=== PATIENT | male | born 1945 | race Caucasian/White ===

== ENCOUNTER 2023-03-07 14:25 | Outpatient (OUT) | payer MEDICARE, SELFPAY ==
[2023-03-07 14:54] LABS: Uric Acid 5.9 mg/dL (3.5-7.2)
[2023-03-07 15:01] LABS: C Reactive Protein <0.2 mg/dL (<=1.0)
[2023-03-07 15:08] LABS: Erythrocyte Sedimentation Rate 29 mm/hr (<=20)
[2023-03-08 04:08] LABS: Antistreptolysin O Ab 35.7 IU/mL (0.0-200.0); Rheumatoid Factor (RF) <10.0 IU/mL (<14.0)
[2023-03-08 14:09] LABS: Anti-CCP Ab, IgG/IgA 7 units (0-19)
[2023-03-09 10:09] LABS: Antinuclear Antibodies, IFA Negative (.)
== END 2023-03-07 14:26 ==
LOC: LAB 14:26
PROVIDERS: PCP Internal Medicine; Visit Provider Internal Medicine
DX: M35.9 Systemic involvement of connective tissue, unspecified (principal)
CPT/HCPCS: 36415; 84550; 85652; 86038; 86060; 86140; 86200; 86430

== ENCOUNTER 2023-05-24 08:00 | Outpatient (OUT) | payer MEDICARE, SELFPAY ==
[2023-05-24 08:34] LABS: Basophils Absolute Auto 0.1 10^3/uL (0.0-0.1); Basophils Percent Auto 1.4 % (0.2-2.0); Eosinophils Percent Auto 0.1 % (0.9-7.0); Hematocrit 36.2 % (42.0-54.0); Hemoglobin 12.1 g/dL (14.0-18.0); Immature Granulocytes Abs Auto 0.06 10^3/uL (0.00-0.03); Immature Granulocytes Pct Auto 0.8 % (0.0-0.5); Lymphocytes Absolute Auto 1.7 10^3/uL (1.2-3.8); Lymphocytes Percent Auto 23.6 % (20.5-60.0); Mean Corpuscular HGB Conc 33.4 g/dL (29.9-35.2); Mean Corpuscular Volume 89.6 fL (80.0-94.0); Mean Platelet Volume 8.9 fL (9.5-13.5); Monocytes Absolute Auto 0.9 10^3/uL (0.3-0.8); Monocytes Percent Auto 12.1 % (1.7-12.0); Neutrophils Absolute Auto 4.6 10^3/uL (1.4-6.5); Platelet Count 329 10^3/uL (150-450); Red Blood Count 4.04 10^6/uL (4.70-6.10); Red Cell Distribution Width 14.6 % (11.0-15.0); White Blood Count 7.4 10^3/uL (4.0-11.0)
[2023-05-24 09:27] LABS: Estimated Average Glucose 137 mg/dL; Glycohemoglobin A1C 6.4 % (4.5-6.2)
[2023-05-24 09:32] LABS: Alanine Aminotransferase 22 U/L (16-63); Albumin Globulin Ratio 1.1; Albumin Level 3.6 g/dL (3.4-5.0); Alkaline Phosphatase 59 U/L (46-116); Anion Gap 8.3; Aspartate Amino Transferase 13 U/L (15-37); BUN Creatinine Ratio 12.2; Bilirubin Direct 0.1 mg/dL (0.0-0.2); Bilirubin Total 0.5 mg/dL (0.2-1.0); Calcium 8.4 mg/dL (8.5-10.1); Chloride 100 mmol/L (98-107); Chol HDL Ratio 2.5; Cholesterol 108 mg/dL (<=200); Estimated GFR (African America 50 (>=60); Estimated GFR (Non-African Ame 41 (>=60); Globulin 3.2 g/dL; Glucose 112 mg/dL (74-106); HDL Cholesterol 44 mg/dL (40-60); LDL Cholesterol Calculated 44.4 mg/dL; Potassium 3.3 mmol/L (3.5-5.1); Sodium 132 mmol/L (136-145); Total Protein 6.8 g/dL (6.4-8.2); Triglycerides 98 mg/dL (<=150); VLDL CHOLESTEROL 19.6 mg/dL
== END 2023-05-24 08:01 | disposition home or self-care (01) ==
LOC: LAB 08:00
PROVIDERS: PCP Internal Medicine; Visit Provider Family Medicine
DX: Z79.899 Other long term (current) drug therapy (principal); E11.65 Type 2 diabetes mellitus with hyperglycemia; E78.5 Hyperlipidemia, unspecified
CPT/HCPCS: 36415; 80048; 80061; 80076; 83036; 85025

== ENCOUNTER 2023-11-24 06:45 | Outpatient (OUT) | payer MEDICARE, SELFPAY ==
[2023-11-24 07:14] LABS: Basophils Absolute Auto 0.1 10^3/uL (0.0-0.1); Basophils Percent Auto 1.2 % (0.2-2.0); Eosinophils Percent Auto 0.1 % (0.9-7.0); Hematocrit 37.5 % (42.0-54.0); Hemoglobin 12.3 g/dL (14.0-18.0); Immature Granulocytes Abs Auto 0.05 10^3/uL (0.00-0.03); Immature Granulocytes Pct Auto 0.6 % (0.0-0.5); Lymphocytes Percent Auto 23.5 % (20.5-60.0); Mean Corpuscular HGB Conc 32.8 g/dL (29.9-35.2); Mean Corpuscular Hemoglobin 30.1 pg (25.9-34.0); Mean Corpuscular Volume 91.7 fL (80.0-94.0); Mean Platelet Volume 9.1 fL (9.5-13.5); Monocytes Absolute Auto 0.9 10^3/uL (0.3-0.8); Monocytes Percent Auto 11.2 % (1.7-12.0); Neutrophils Absolute Auto 5.3 10^3/uL (1.4-6.5); Neutrophils Percent Auto 63.4 % (43.0-75.0); Platelet Count 265 10^3/uL (150-450); Red Blood Count 4.09 10^6/uL (4.70-6.10); Red Cell Distribution Width 14.2 % (11.0-15.0); White Blood Count 8.3 10^3/uL (4.0-11.0)
[2023-11-24 09:13] LABS: Microalbumin Urine Random <1.3 mg/dL (<=30.0)
[2023-11-24 09:50] LABS: Estimated Average Glucose 134 mg/dL; Glycohemoglobin A1C 6.3 % (4.5-6.2)
[2023-11-24 09:51] LABS: BUN Creatinine Ratio 12.7; Calcium 8.2 mg/dL (8.5-10.1); Carbon Dioxide 28.4 mmol/L (21.0-32.0); Chloride 105 mmol/L (98-107); Estimated GFR (African America 49 (>=60); Estimated GFR (Non-African Ame 40 (>=60); Free T3 2.11 pg/mL (2.18-3.98); Glucose 107 mg/dL (74-106); Potassium 3.4 mmol/L (3.5-5.1); Sodium 146 mmol/L (136-145); Thyroid Stimulating Hormone 3.286 uIU/mL (0.358-3.740)
== END 2023-11-24 06:46 | disposition home or self-care (01) ==
PROVIDERS: PCP Family Medicine; Visit Provider Family Medicine
DX: E11.65 Type 2 diabetes mellitus with hyperglycemia (principal); Z79.899 Other long term (current) drug therapy; E03.9 Hypothyroidism, unspecified
CPT/HCPCS: 36415; 80048; 82043; 83036; 84439; 84443; 84481; 85025

== ENCOUNTER 2024-05-18 08:51 | Outpatient (OUT) | payer MEDICARE, SELFPAY ==
--- OUTSIDE RECORDS SUMMARY | 2024-05-17 18:56 | XMS_ITS | CCD ---
Author Organization [facility] Care Team Providers Care Cloud Developer Name Role Phone CHRISTIANO, DR IMELDA Fowler Attending Unavailable NADERER, DR IMELDA Fowler Consulting Unavailable NADERER, DR IMELDA Fowler Primary Care Unavailable NADERER, DR IMELDA Fowler Admitting Unavailable NADERER, DR IMELDA Fowler Consulting Unavailable NADERER, DR IMELDA Fowler Primary Care Unavailable NADERER, DR IMELDA Fowler Admitting Unavailable NADERER, DR IMELDA Fowler Attending Unavailable NADERER, DR IMELDA Fowler Consulting Unavailable NADERER, DR IMELDA Fowler Primary Care Unavailable NADERER, DR IMELDA Fowler Admitting Unavailable NADERER, DR IMELDA Fowler Attending Unavailable Problems Problem Classification Problem Date Documented Da te Episodic/Chronic Diabetes mellitus with complications (1 source) Type 2 diabetes mellitus with hyperglycemia; Translations: [TYPE 2 DM W/HYPERGLYCEMIA] Onset: 11-07-2022 Chronic Disorders of lipid metabolism (1 source) Hyperlipidemia, unspecified; Translations: [HYPERLIPIDEMIA UNSPECIFIED] Onset: 05-01-2022 Chronic Essential hypertension (4 sources) Essential (primary) hypertension; Translations: [ESSENTIAL PRIMARY HYPERTENSION] Onset: 11-05-2022 Chronic Nutritional deficiencies (5 sources) Vitamin D deficiency, unspecified; Translations: [VITAMIN D DEFICIENCY UNSPECIFIED] Onset: 04-28-2022 Chronic Other aftercare (1 source) Other usp (current) drug therapy; Translations: [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] Onset: 11-07-2022 Episodic Other screening for suspected conditions (not mental disorders or infectious disease) (5 sources) Elevated prostate specific antigen [PSA]; Translations: [Encounter for screening for malignant neoplasm of prostate] Onset: 11-07-2022 Episodic Thyroid disorders (1 source) Hypothyroidism, unspecified; Translations: [HYPOTHYROIDISM UNSPECIFIED] Onset: 01-05-2023 Chronic Results Test Name Value Interpretation Reference Range Facil ity PSA, FREE AND TOTAL RATIOon 12-31-2022 % Free PSA 17.2 % Normal [facility] Comment on above: Result Comment: The table below lists the probability of prostate cancer for men with non-suspicious DANAY results and total PSA between 4 and 10 ng/mL, by patient age (Eduarda et al, KIMMY 1998, 279:1542). % Free PSA 50-64 yr 65-75 yr 0.00-10.00% 56% 55% 10.01-15.00% 24% 35% 15.01-20.00% 17% 23% 20.01-25.00% 10% 20% >25.00% 5% 9% Please note: Eduarda et al did not make specific recommendations regarding the use of percent free PSA for any other population of men. Performed By: #### P SAFREE #### [facility] [address] [place] [address] Dr. Gt Bustamante Prostate specific Ag [Mass/Vol] 3.2 ng/mL Normal 0.0-4.0 [facility] Comment on above: Result Comment: Tiffany dick ECLIA methodology. . According to the [place] [employer], Serum PSA should decrease and remain at undetectable levels after radical prostatectomy. The AUA defines biochemical recurrence as an initial PSA value 0.2 ng/mL or greater followed by a subsequent confirmatory PSA value 0.2 ng/mL or greater. Values obtained with different assay methods or kits cannot be used interchangeably. Results cannot be interpreted as absolute evidence of the presence or absence of malignant disease. Performed By: #### P SAFREE #### [facility] [address] [address] [address] Gt Bustamante PSA, Free 0.55 ng/mL Normal N/A [facility] Comment on above: Result Comment: Tiffany dick ECLIA methodology. Performed By: #### P SAFREE #### [facility] [address] [address] [address] Gt Bustamante FREE T3on 12-30-2022 FREE T3 1.73 pg/mlL Critically low 2.18-3.98 [facility] Comment on above: Performed By: #### F T3, TSH #### [facility] [address] [place] [address] Dr. Gt Bustamante FREE T4on 12-30-2022 Free T4 [Mass/Vol] 1.24 ng/dL Normal 0.76-1.[address] [facility] Comment on above: Performed By: #### F T3, TSH, BMP, LIPID, LIVER #### [facility] [address] [place] [address] Dr. Gt Bustamante TSHon 12-30-2022 TSH 2.874 uIU/mL Normal 0.358-3.740 The [facility] Comment on above: Performed By: #### F T3, TSH #### [facility] [address] [place] [address] Dr. Gt Bustamante CBC W MANUAL DIFFon 11-05-19 23 ATYPICAL LYMPH # Normal [facility] Comment on above: Performed By: #### C KING #### [facility] [address] [place] [address] Dr. Gt Bustamante ATYPICAL LYMPH % Normal [facility] Comment on above: Performed By: #### C KING #### [facility] [address] [place] [address] Dr. Gt Bustamante BAND # 0.0 103/ul Normal 0.0-0.3 The [facility] Comment on above: Performed By: #### C KING #### [facility] [address] [place] [address] Dr. Gt Bustamante BAND % 0 % Normal 0-5 The [facility] Comment on above: Performed By: #### C KING #### [facility] [address] [place] [address] Dr. Gt Bustamante BASOM # 0.00 103/ul Normal 0.00-0.10 [facility] Comment on above: Performed By: #### C KING #### [facility] [address] [place] [address] Dr. Gt Bustamante BASOM % 0.0 % Critically low 0.2-2.0 [facility] Comment on above: Performed By: #### C KING #### [facility] [address] [place] [address] Dr. Gt Bustamante BLAST # Normal [facility] Comment on above: Performed By: #### C KING #### [facility] [address] [address] [address] Gt Bustamante BLAST % Normal [facility] Comment on above: Performed By: #### C KING #### [facility] [address] [address] [address] Gt Bustamante CORRECTED WBC Normal 4.0-11.0 The [facility] Comment on above: Performed By: #### C KING #### [facility] [address] [address] [address] Gt Bustamante EOS # 0.93 103/ul Critically high 0.00-0.70 [facility] Comment on above: Performed By: #### C KING #### [facility] [address] [address] [address] Gt Bustamante EOS% 10.0 % Critically high 0.9-7.0 [facility] Comment on above: Performed By: #### C KING #### [facility] [address] [address] [address] Gt Bustamante HCT 42.4 % Normal 42.0-54.0 [facility] Comment on above: Performed By: #### C KING #### [facility] [address] [place] [address] Dr. Gt Bustamante HGB 13.3 g/dl Critically low 14.0-18.0 [facility] Comment on above: Performed By: #### C KING #### [facility] [address] [address] [address] Gt Bustamante LYMPHM # 1.12 103/ul Critically low 1.20-3.80 The [facility] Comment on above: Performed By: #### C KING #### [facility] [address] [address] [address] Gt Bustamante LYMPHM% 12.0 % Critically low 20.5-60.0 [facility] Comment on above: Performed By: #### C KING #### [facility] [address] [address] [address] Gt Bustamante MCH 29.6 pg Normal 25.9-34.0 [facility] Comment on above: Performed By: #### C KING #### [facility] [address] [place] [address] Dr. Gt Bustamante MCHC 31.4 g/dl Normal 29.9-35.2 [facility] Comment on above: Performed By: #### C BCJUAN #### [facility] [address] [address] [address] Gt Bustamante MCV 94.2 fL Critically high 80.0-94.0 [facility] Comment on above: Performed By: #### C BCJUAN #### [facility] [address] [place] [address] Dr. Gt Bustamante METAMYELOCYTE # Normal [facility] Comment on above: Performed By: #### C KING #### [facility] [address] [place] [address] Dr. Gt Bustamante METAMYELOCYTE % Normal [facility] Comment on above: Performed By: #### C KING #### [facility] [address] [place] [address] Dr. Gt Bustamante MONOM# 1.86 103/ul Critically high 0.30-0.80 [facility] Comment on above: Performed By: #### C KING #### [facility] [address] [place] [address] Dr. Gt Bustamante MONOM% 20.0 % Critically high 1.7-12.0 [facility] Comment on above: Performed By: #### C KING #### [facility] [address] [place] [address] Dr. Gt Bustamante MPV 10.0 fL Normal 9.5-13.5 [facility] Comment on above: Performed By: #### C KING #### [facility] [address] [place] [address] Dr. Gt Bustamante MYELOCYTE # Normal The [facility] Comment on above: Performed By: #### C BCJUAN #### [facility] [address] [address] [address] Gt Bustamante MYELOCYTE % Normal [facility] Comment on above: Performed By: #### C KING #### [facility] [address] [address] [address] Gt Bustamante NRBC Normal [facility] Comment on above: Performed By: #### C KING #### [facility] [id number] Gt Bustamante PLT 367 103/ul Normal 150-450 [facility] Comment on above: Performed By: #### C KING #### [facility] [address] [address] [address] Gt Bustamante RBC 4.50 106/ul Critically low 4.70-6.10 [facility] Comment on above: Performed By: #### C KING #### [facility] [address] [place] [address] Dr. Gt Bustamante RDW 14.6 % Normal 11.0-15.0 [facility] Comment on above: Performed By: #### C KING #### [facility] [address] [place] [address] Dr. Gt Bustamante SEG # 5.39 103/ul Normal 1.40-6.50 [facility] Comment on above: Performed By: #### C KING #### [facility] [address] [place] [address] Dr. Gt Bustamante SEG % 58.0 % Normal 43.0-75.0 [facility] Comment on above: Performed By: #### C KING #### [facility] [address] [place] [address] Dr. Gt Bustamante WBC 9.3 103/ul Normal 4.0-11.0 [facility] Comment on above: Performed By: #### C KING #### [facility] [address] [place] [address] Dr. Gt Bustamante FREE T3on 11-05-2022 FREE T3 2.00 pg/mlL Critically low 2.18-3.98 [facility] Comment on above: Performed By: #### F T3, TSH, BMP, LIPID, LIVER #### [facility] [address] [place] [address] Dr. Gt Bustamante FREE T4on 11-05-2022 Free T4 [Mass/Vol] 1.17 ng/dL Normal 0.76-1.46 [facility] Comment on above: Performed By: #### F T3, TSH, BMP, LIPID, LIVER #### [facility] [address] [place] [address] Dr. Gt Bustamante GLYCOHEMOGLOBIN A1Con 2022 ADA RECOMMENDATION SEE BELOW Normal [facility] Comment on above: Result Comment: ADA RECOMMENDED LIMIT 4.0 - 6.0 ADA THERAPEUTIC TARGET < 7.0 ACTION SUGGESTED > 7.0 Performed By: #### F T3, TSH, BMP, LIPID, LIVER #### [facility] [address] [place] [address] Dr. Gt Bustamante Glucose [Mass/Vol] 137 mg/dL Normal [facility] Comment on above: Performed By: #### F T3, TSH, BMP, LIPID, LIVER #### [facility] [address] [place] [address] Dr. Gt Bustamante HbA1c (Bld) [Mass fraction] 6.4 % Critically high 4.5-6.2 [facility] Comment on above: Performed By: #### F T3, TSH, BMP, LIPID, LIVER #### [facility] [address] [place] [address] Dr. Gt Bustamante LIPID PROFILEon 11-05-2022 CHOL-HDL RATIO NORM SEE BELOW Normal [facility] Comment on above: Result Comment: 3.3 - 4.4 LOW RISK 4.4 - 7.1 AVERAGE RISK 7.1 - 11.0 MODERATE RISK >11.0 HIGH RISK Performed By: #### F T3, TSH, BMP, LIPID, LIVER #### [facility] [address] [place] [address] Dr. Gt Bustamante Cholesterol [Mass/Vol] 122 mg/dL Normal <=200 [facility] Comment on above: Performed By: #### F T3, TSH, BMP, LIPID, LIVER #### [facility] [address] [address] [address] Gt Bustamante Cholesterol in HDL [Mass/Vol] 44 mg/dL Normal 40-60 [facility] Comment on above: Performed By: #### F T3, TSH, BMP, LIPID, LIVER #### [facility] [address] [address] [address] Gt Bustamante Cholesterol in LDL [Mass/Vol] 50.8 mg/dL Normal [facility] Comment on above: Performed By: #### F T3, TSH, BMP, LIPID, LIVER #### [facility] [address] [address] [address] Gt Bustamante Cholesterol.total/Cho lesterol in HDL [Mass ratio] 2.8 {ratio} Normal [facility] Comment on above: Performed By: #### F T3, TSH, BMP, LIPID, LIVER #### [facility] [address] [address] [address] Gt Bustamante HDL NORMAL > or = 60 mg/dl - LOW CARDIOVASCULAR RISK <40 mg/dl - HIGH CARDIOVASCULAR RISK Normal [facility] Comment on above: Performed By: #### F T3, TSH, BMP, LIPID, LIVER #### [facility] [address] [address] [address] Gt Bustamante LDL CALC NORMAL SEE BELOW Normal [facility] Comment on above: Result Comment: <100 mg/dl OPTIMAL 100 - 129 mg/dl NEAR OR ABOVE OPTIMAL 130 - 159 mg/dl BORDERLINE HIGH 160 - 189 mg/dl HIGH >190 mg/dl VERY HIGH Performed By: #### F T3, TSH, BMP, LIPID, LIVER #### [facility] [address] [address] [address] Gt Bustamante Triglyceride [Mass/Vol] 136 mg/dL Normal <=150 [facility] Comment on above: Performed By: #### F T3, TSH, BMP, LIPID, LIVER #### [facility] [address] [address] [address] Gt Bustamante VLDL CALC 27.2 mg/dL Normal [facility] Comment on above: Performed By: #### F T3, TSH, BMP, LIPID, LIVER #### [facility] [address] [place] [address] Dr. Gt Bustamante LIVER PROFILEon 11-05-2022 Albumin [Mass/Vol] 3.5 g/dL Normal 3.4-5.0 [facility] Comment on above: Performed By: #### F T3, TSH, BMP, LIPID, LIVER #### [facility] [address] [place] [address] Dr. Gt Bustamante Albumin/Globulin [Mass ratio] 1.0 {ratio} Normal [facility] Comment on above: Performed By: #### F T3, TSH, BMP, LIPID, LIVER #### [facility] [address] [place] [address] Dr. Gt Bustamante ALP [Catalytic activity/Vol] 64 U/L Normal 46-116 [facility] Comment on above: Performed By: #### F T3, TSH, BMP, LIPID, LIVER #### [facility] [address] [place] [address] Dr. Gt Bustamante ALT [Catalytic activity/Vol] 23 U/L Normal 16-63 [facility] Comment on above: Performed By: #### F T3, TSH, BMP, LIPID, LIVER #### [facility] [address] [place] [address] Dr. Gt Bustamante AST [Catalytic activity/Vol] 17 U/L Normal 15-37 [facility] Comment on above: Performed By: #### F T3, TSH, BMP, LIPID, LIVER #### [facility] [address] [place] [address] Dr. Gt Bustamante BILI, CONJUGATED 0.1 mg/dL Normal 0.0-0.2 [facility] Comment on above: Performed By: #### F T3, TSH, BMP, LIPID, LIVER #### [facility] [address] [place] [address] Dr. Gt Bustamante Bilirubin [Mass/Vol] 0.6 mg/dL Normal 0.2-1.0 [facility] Comment on above: Performed By: #### F T3, TSH, BMP, LIPID, LIVER #### [facility] [address] [place] [address] Dr. Gt Bustamante Globulin (S) [Mass/Vol] 3.5 g/dL Normal [facility] Comment on above: Performed By: #### F T3, TSH, BMP, LIPID, LIVER #### [facility] [address] [place] [address] Dr. Gt Bustamante Protein [Mass/Vol] 7.0 g/dL Normal 6.4-8.[address] [facility] Comment on above: Performed By: #### F T3, TSH, BMP, LIPID, LIVER #### [facility] [address] [place] [address] Dr. Gt Bustamante MICROALBUMIN, RAND URon 02-0 mALB 1.7 mg/L Normal <=30.0 [facility] Comment on above: Performed By: #### M ALBR #### [facility] [address] [place] [address] Dr. Gt Bustamante PROF CHEM 8 (BAS METB)on Anion gap [Moles/Vol] 14.5 mmol/L Normal [facility] Comment on above: Performed By: #### F T3, TSH, BMP, LIPID, LIVER #### [facility] [address] [place] [address] Dr. Gt Bustamante Calcium [Mass/Vol] 8.9 mg/dL Normal 8.5-10.1 [facility] Comment on above: Performed By: #### F T3, TSH, BMP, LIPID, LIVER #### [facility] [address] [place] [address] Dr. Gt Bustamante Chloride [Moles/Vol] 102 mmol/L Normal 98-107 [facility] Comment on above: Performed By: #### F T3, TSH, BMP, LIPID, LIVER #### [facility] [address] [place] [address] Dr. Gt Bustamante CO2 [Moles/Vol] 28.4 mmol/L Normal 21.0-32.0 [facility] Comment on above: Performed By: #### F T3, TSH, BMP, LIPID, LIVER #### [facility] [address] [place] [address] Dr. Gt Bustamante Creatinine [Mass/Vol] 1.44 mg/dL Critically high 0.70-1.30 [facility] Comment on above: Performed By: #### F T3, TSH, BMP, LIPID, LIVER #### [facility] [address] [address] [address] Gt Bustamante EGFR-AF [place] 58 mL/min/1.73m2 Critically low >=60 [facility] Comment on above: Performed By: #### F T3, TSH, BMP, LIPID, LIVER #### [facility] [address] [address] [address] Gt Bustamante EGFR-NON AF [place] 48 mL/min/1.73m2 Critically low >=60 [facility] Comment on above: Performed By: #### F T3, TSH, BMP, LIPID, LIVER #### [facility] [address] [place] [address] Dr. Gt Bustamante Glucose [Mass/Vol] 114 mg/dL Critically high 74-106 [facility] Comment on above: Performed By: #### F T3, TSH, BMP, LIPID, LIVER #### [facility] [address] [address] [address] Gt Bustamante Potassium [Moles/Vol] 3.9 mmol/L Normal 3.5-5.1 [facility] Comment on above: Performed By: #### F T3, TSH, BMP, LIPID, LIVER #### [facility] [address] [address] [address] Gt Bustamante Sodium [Moles/Vol] 141 mmol/L Normal 136-145 [facility] Comment on above: Performed By: #### F T3, TSH, BMP, LIPID, LIVER #### [facility] [address] [address] [address] Gt Bustamante Urea nitrogen [Mass/Vol] 19.0 mg/dL Critically high 7.0-18.0 [facility] Comment on above: Performed By: #### F T3, TSH, BMP, LIPID, LIVER #### [facility] [address] [address] [address] Gt Bustamante Urea nitrogen/Creatinine [Mass ratio] 13.2 mg/mg Normal [facility] Comment on above: Performed By: #### F T3, TSH, BMP, LIPID, LIVER #### [facility] [address] [address] [address] Gt Bustamante TSHon 11-05-2022 TSH 4.181 uIU/mL Critically high 0.358-3.740 [facility] Comment on above: Performed By: #### F T3, TSH, BMP, LIPID, LIVER #### [facility] [address] [address] [address] Gt Bustamante VITAMIN D 25 OHon 11-05-2022 VIT D 25-OH 68.0 ng/mL Normal [facility] Comment on above: Performed By: #### F T3, TSH, BMP, LIPID, LIVER #### [facility] [address] [address] [address] Gt Bustamante VIT D RANGES SEE BELOW Normal [facility] Comment on above: Result Comment: <20 ng/mL Vit D deficient 20 - <30 ng/mL Vit D insufficient 30 - 100 ng/mL Vit D sufficient >100 ng/mL Potential Toxicity Performed By: #### F T3, TSH, BMP, LIPID, LIVER #### [facility] [address] [address] [address] Gt Bustamante VIT D 25-OH [employer] 2021 Vitamin D, 25-Hydroxy 59.7 ng/mL Normal 30.0-100.0 [facility] Comment on above: Result Comment: Rut min D deficiency has been defined by the [place] [employer] and an Endocrine Society practice guideline as a level of serum 25-OH vitamin D less than 20 ng/mL (1,2). The Endocrine Society went on to further define vitamin D insufficiency as a level between 21 and 29 ng/mL (2). 1. IOM ([place] [employer]). 2010. Dietary reference intakes for calcium and D. [place]: The National Academies Press. 2. Tammi HOOPER, Artie [place], Ahmet GUIDO, et al. Evaluation, treatment, and prevention of vitamin D deficiency: an Endocrine Society clinical practice guideline. JCEM. 2010; 96(7):1911-30. Performed By: #### F T3, TSH, BMP, LIPID, LIVER #### [facility] [address] [place] [address] Dr. Gt Bustamante CBC AUTO DIFFon 04-28-2022 BASO # 0.1 103/ul Normal 0.0-0.1 [facility] Comment on above: Performed By: #### F T3, TSH, BMP, LIPID, LIVER #### [facility] [address] [place] [address] Dr. Gt Bustamante Basophils/100 WBC (Bld) 1.6 % Normal 0.2-2.0 [facility] Comment on above: Performed By: #### F T3, TSH, BMP, LIPID, LIVER #### [facility] [address] [place] [address] Dr. Gt Bustamante EO # 0.0 103/ul Normal 0.0-0.7 [facility] Comment on above: Performed By: #### F T3, TSH, BMP, LIPID, LIVER #### [facility] [address] [place] [address] Dr. Gt Bustamante Eosinophils/100 WBC (Bld) 0.0 % Critically low 0.9-7.0 [facility] Comment on above: Performed By: #### F T3, TSH, BMP, LIPID, LIVER #### [facility] [address] [place] [address] Dr. Gt Bustamante Erythrocyte distribution width (RBC) [Ratio] 13.9 % Normal 11.0-15.0 [facility] Comment on above: Performed By: #### F T3, TSH, BMP, LIPID, LIVER #### [facility] [address] [place] [address] Dr. Gt Bustamante Hematocrit (Bld) [Volume fraction] 39.4 % Critically low 42.0-54.0 [facility] Comment on above: Performed By: #### F T3, TSH, BMP, LIPID, LIVER #### [facility] [address] [place] [address] Dr. Gt Bustamante Hemoglobin (Bld) [Mass/Vol] 12.8 g/dL Critically low 14.0-18.0 [facility] Comment on above: Performed By: #### F T3, TSH, BMP, LIPID, LIVER #### [facility] [address] [place] [address] Dr. Gt Bustamante IG # 0.11 10e3/ul Critically high 0.00-0.03 [facility] Comment on above: Performed By: #### F T3, TSH, BMP, LIPID, LIVER #### [facility] [address] [place] [address] Dr. Gt Bustamante IG % 1.3 % Critically high 0.0-0.5 [facility] Comment on above: Performed By: #### F T3, TSH, BMP, LIPID, LIVER #### [facility] [address] [place] [address] Dr. Gt Bustamante LYMPH # 1.8 103/ul Normal 1.2-3.8 [facility] Comment on above: Performed By: #### F T3, TSH, BMP, LIPID, LIVER #### [facility] [address] [place] [address] Dr. Gt Bustamante Lymphocytes/100 WBC (Bld) 20.2 % Critically low 20.5-60.0 [facility] Comment on above: Performed By: #### F T3, TSH, BMP, LIPID, LIVER #### [facility] [address] [place] [address] Dr. Gt Bustamante MANUAL DIFF REQ NO Normal [facility] Comment on above: Performed By: #### F T3, TSH, BMP, LIPID, LIVER #### [facility] [address] [place] [address] Dr. Gt Bustamante MCH (RBC) [Entitic mass] 29.5 pg Normal 25.9-34.0 [facility] Comment on above: Performed By: #### F T3, TSH, BMP, LIPID, LIVER #### [facility] [address] [place] [address] Dr. Gt Bustamante MCHC (RBC) [Mass/Vol] 32.5 g/dL Normal 29.9-35.2 [facility] Comment on above: Performed By: #### F T3, TSH, BMP, LIPID, LIVER #### [facility] [address] [address] [address] Gt Bustamante MCV (RBC) [Entitic vol] 90.8 fL Normal 80.0-94.0 [facility] Comment on above: Performed By: #### F T3, TSH, BMP, LIPID, LIVER #### [facility] [address] [place] [address] Dr. Gt Bustamante MONO # 0.9 103/ul Critically high 0.3-0.8 [facility] Comment on above: Performed By: #### F T3, TSH, BMP, LIPID, LIVER #### [facility] [address] [place] [address] Dr. Gt Bustamante Monocytes/100 WBC (Bld) 10.1 % Normal 1.7-12.0 [facility] Comment on above: Performed By: #### F T3, TSH, BMP, LIPID, LIVER #### [facility] [address] [place] [address] Dr. Gt Bustamante NEUT # 5.8 103/ul Normal 1.4-6.5 [facility] Comment on above: Performed By: #### F T3, TSH, BMP, LIPID, LIVER #### [facility] [address] [place] [address] Dr. Gt Bustamante Neutrophils/100 WBC (Bld) 66.8 % Normal 43.0-75.0 [facility] Comment on above: Performed By: #### F T3, TSH, BMP, LIPID, LIVER #### [facility] [address] [place] [address] Dr. Gt Bustamante Platelet mean volume (Bld) [Entitic vol] 9.3 fL Critically low 9.5-13.5 [facility] Comment on above: Performed By: #### F T3, TSH, BMP, LIPID, LIVER #### [facility] [address] [place] [address] Dr. Gt Bustamante PLT 357 103/ul Normal 150-450 [facility] Comment on above: Performed By: #### F T3, TSH, BMP, LIPID, LIVER #### [facility] [address] [address] [address] Gt Bustamante RBC 4.34 106/ul Critically low 4.70-6.10 [facility] Comment on above: Performed By: #### F T3, TSH, BMP, LIPID, LIVER #### [facility] [address] [address] [address] Gt Bustamante WBC 8.7 103/ul Normal 4.0-11.0 [facility] Comment on above: Performed By: #### F T3, TSH, BMP, LIPID, LIVER #### [facility] [address] [address] [address] Gt Bustamante GLYCOHEMOGLOBIN A1Con 2021 ADA RECOMMENDATION SEE BELOW Normal [facility] Comment on above: Result Comment: ADA RECOMMENDED LIMIT 4.0 - 6.0 ADA THERAPEUTIC TARGET < 7.0 ACTION SUGGESTED > 7.0 Performed By: #### F T3, TSH, BMP, LIPID, LIVER #### [facility] [address] [address] [address] Gt Bustamante Glucose [Mass/Vol] 151 mg/dL Normal [facility] Comment on above: Performed By: #### F T3, TSH, BMP, LIPID, LIVER #### [facility] [address] [address] [address] Gt Bustamante HbA1c (Bld) [Mass fraction] 6.9 % Critically high 4.5-6.2 [facility] Comment on above: Performed By: #### F T3, TSH, BMP, LIPID, LIVER #### [facility] [address] [address] [address] Gt Bustamante LIPID PROFILEon 04-28-2022 CHOL-HDL RATIO NORM SEE BELOW Normal [facility] Comment on above: Result Comment: 3.3 - 4.4 LOW RISK 4.4 - 7.1 AVERAGE RISK 7.1 - 11.0 MODERATE RISK >11.0 HIGH RISK Performed By: #### F T3, TSH, BMP, LIPID, LIVER #### [facility] [address] [address] [address] Gt Bustamante Cholesterol [Mass/Vol] 113 mg/dL Normal <=200 [facility] Comment on above: Performed By: #### F T3, TSH, BMP, LIPID, LIVER #### [facility] [address] [address] [address] Gt Bustamante Cholesterol in HDL [Mass/Vol] 39 mg/dL Critically low 40-60 [facility] Comment on above: Performed By: #### F T3, TSH, BMP, LIPID, LIVER #### [facility] [address] [address] [address] Gt Bustamante Cholesterol in LDL [Mass/Vol] 48.8 mg/dL Normal [facility] Comment on above: Performed By: #### F T3, TSH, BMP, LIPID, LIVER #### [facility] [address] [address] [address] Gt Bustamante Cholesterol.total/Cho lesterol in HDL [Mass ratio] 2.9 {ratio} Normal [facility] Comment on above: Performed By: #### F T3, TSH, BMP, LIPID, LIVER #### [facility] [address] [address] [address] Gt Bustamante HDL NORMAL > or = 60 mg/dl - LOW CARDIOVASCULAR RISK <40 mg/dl - HIGH CARDIOVASCULAR RISK Normal [facility] Comment on above: Performed By: #### F T3, TSH, BMP, LIPID, LIVER #### [facility] [address] [address] [address] Gt Bustamante LDL CALC NORMAL SEE BELOW Normal [facility] Comment on above: Result Comment: <100 mg/dl OPTIMAL 100 - 129 mg/dl NEAR OR ABOVE OPTIMAL 130 - 159 mg/dl BORDERLINE HIGH 160 - 189 mg/dl HIGH >190 mg/dl VERY HIGH Performed By: #### F T3, TSH, BMP, LIPID, LIVER #### [facility] [address] [address] [address] Gt Bustamante Triglyceride [Mass/Vol] 126 mg/dL Normal <=150 [facility] Comment on above: Performed By: #### F T3, TSH, BMP, LIPID, LIVER #### [facility] [address] [address] [address] Gt Bustamante VLDL CALC 25.2 mg/dL Normal [facility] Comment on above: Performed By: #### F T3, TSH, BMP, LIPID, LIVER #### [facility] [address] [place] [address] Dr. Gt Bustamante LIVER PROFILEon 04-28-2022 Albumin [Mass/Vol] 3.4 g/dL Normal 3.4-5.0 [facility] Comment on above: Performed By: #### F T3, TSH, BMP, LIPID, LIVER #### [facility] [address] [place] [address] Dr. Gt Bustamante Albumin/Globulin [Mass ratio] 1.0 {ratio} Normal [facility] Comment on above: Performed By: #### F T3, TSH, BMP, LIPID, LIVER #### [facility] [address] [place] [address] Dr. Gt Bustamante ALP [Catalytic activity/Vol] 57 U/L Normal 46-116 [facility] Comment on above: Performed By: #### F T3, TSH, BMP, LIPID, LIVER #### [facility] [address] [place] [address] Dr. Gt Bustamante ALT [Catalytic activity/Vol] 27 U/L Normal 16-63 [facility] Comment on above: Performed By: #### F T3, TSH, BMP, LIPID, LIVER #### [facility] [address] [place] [address] Dr. Gt Bustamante AST [Catalytic activity/Vol] 14 U/L Critically low 15-37 [facility] Comment on above: Performed By: #### F T3, TSH, BMP, LIPID, LIVER #### [facility] [address] [place] [address] Dr. Gt Bustamante BILI, CONJUGATED 0.1 mg/dL Normal 0.0-0.2 [facility] Comment on above: Performed By: #### F T3, TSH, BMP, LIPID, LIVER #### [facility] [address] [place] [address] Dr. Gt Bustamante Bilirubin [Mass/Vol] 0.5 mg/dL Normal 0.2-1.0 [facility] Comment on above: Performed By: #### F T3, TSH, BMP, LIPID, LIVER #### [facility] [address] [place] [address] Dr. Gt Bustamante Globulin (S) [Mass/Vol] 3.4 g/dL Normal [facility] Comment on above: Performed By: #### F T3, TSH, BMP, LIPID, LIVER #### [facility] [address] [place] [address] Dr. Gt Bustamante Protein [Mass/Vol] 6.8 g/dL Normal 6.4-8.[address] [facility] Comment on above: Performed By: #### F T3, TSH, BMP, LIPID, LIVER #### [facility] [address] [place] [address] Dr. Gt Bustamante PROF CHEM 8 (BAS METB)on Anion gap [Moles/Vol] 15.1 mmol/L Normal [facility] Comment on above: Performed By: #### F T3, TSH, BMP, LIPID, LIVER #### [facility] [address] [place] [address] Dr. Gt Bustamante Calcium [Mass/Vol] 9.0 mg/dL Normal 8.5-10.1 [facility] Comment on above: Performed By: #### F T3, TSH, BMP, LIPID, LIVER #### [facility] [address] [place] [address] Dr. Gt Bustamante Chloride [Moles/Vol] 102 mmol/L Normal 98-107 [facility] Comment on above: Performed By: #### F T3, TSH, BMP, LIPID, LIVER #### [facility] [address] [place] [address] Dr. Gt Bustamante CO2 [Moles/Vol] 28.2 mmol/L Normal 21.0-32.0 [facility] Comment on above: Performed By: #### F T3, TSH, BMP, LIPID, LIVER #### [facility] [address] [place] [address] Dr. Gt Bustamante Creatinine [Mass/Vol] 1.60 mg/dL Critically high 0.70-1.30 [facility] Comment on above: Performed By: #### F T3, TSH, BMP, LIPID, LIVER #### [facility] [address] [place] [address] Dr. Gt Bustamante EGFR-AF [place] 51 mL/min/1.73m2 Critically low >=60 [facility] Comment on above: Performed By: #### F T3, TSH, BMP, LIPID, LIVER #### [facility] [address] [place] [address] Dr. Gt Bustamante EGFR-NON AF [place] 42 mL/min/1.73m2 Critically low >=60 [facility] Comment on above: Performed By: #### F T3, TSH, BMP, LIPID, LIVER #### [facility] [address] [place] [address] Dr. Gt Bustamante Glucose [Mass/Vol] 152 mg/dL Critically high 74-106 [facility] Comment on above: Performed By: #### F T3, TSH, BMP, LIPID, LIVER #### [facility] [address] [place] [address] Dr. Gt Bustamante Potassium [Moles/Vol] 4.3 mmol/L Normal 3.5-5.1 [facility] Comment on above: Performed By: #### F T3, TSH, BMP, LIPID, LIVER #### [facility] [address] [place] [address] Dr. Gt Bustamante Sodium [Moles/Vol] 141 mmol/L Normal 136-145 [facility] Comment on above: Performed By: #### F T3, TSH, BMP, LIPID, LIVER #### [facility] [address] [place] [address] Dr. Gt Bustamante Urea nitrogen [Mass/Vol] 20.0 mg/dL Critically high 7.0-18.0 [facility] Comment on above: Performed By: #### F T3, TSH, BMP, LIPID, LIVER #### [facility] [address] [place] [address] Dr. Gt Bustamante Urea nitrogen/Creatinine [Mass ratio] 12.5 mg/mg Normal [facility] Comment on above: Performed By: #### F T3, TSH, BMP, LIPID, LIVER #### [facility] [address] [place], [place] [address] Dr. Gt Bustamante Encounters Encounter Date Encounter Type Care Provider Facility Start: 12-30-2022 End: 12-31-[address] IMELDA ALVARADO Facility:[facility] Start: 11-05-2022 End: 11-06-[address] IMELDA ALVARADO Facility:[facility] Start: 04-28-2022 End: 04-29-[address] IMELDA ALVARADO Facility:[facility] Procedures Date Procedure Procedure Detail Performing Clinician Start: 11-05-[address] IMELDA VOSS Comment on above: Performed By: #### F T3, TSH, BMP, LIPID, LIVER #### [facility] [address], [place] [address] Dr. Gt Bustamante Payers Date Payer Category Payer Medicare [id number] 1957 Private Health Insurance [facility] [id number] 1945 Unknown [id number] 1945 Unknown [id number] 1945 Unknown [id number] Summary Purpose Family History No Family History Records Found Advance Directives No Advanced Directives Records Found Additional Source Comments (unrecognized sect ion and content) No Status Records Found INFORMATION SOURCE (unrecogn ized section and content) DATE CREATED AUTHOR 01/07/2023 [facility] FOR RECORDS PERTAINING TO PATIENTS WHO ARE OR HAVE BEEN ENROLLED IN A CHEMICAL DEPENDENCY/SUBSTANCEABUSE PROGRAM, SOME INFORMATION MAY BE OMITTED. This clinical summary was aggregated from multiple sources. Caution should be exercised in using it in the provision of clinical care. This summary normalizes information from multiple sources, and as a consequence, information in this document may materially change the coding, format and clinical context of patient data. In addition, data may be omitted in some cases. CLINICAL DECISIONS SHOULD BE BASED ON THE PRIMARY CLINICAL RECORDS. [facility]. provides no warranty or guarantee of the accuracy or completeness of information in this document.
--- OUTSIDE RECORDS SUMMARY | 2024-05-18 08:59 | XMS_ITS | CCD ---
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 Performed By: #### P SAFREE #### [facility] [address] [place] [address] Dr. Gt Bustamante Prostate specific Ag [Mass/Vol] 3.2 ng/mL Normal 0.0-4.0 [facility] Comment on above: Result Comment: Tiffany dick ECLIA methodology. . According to the [place] [employer], Serum PSA should decrease and [...] disease. Performed By: #### P SAFREE #### [facility] [address] [address] [address] Gt Bustamante PSA, Free 0.55 ng/mL Normal N/A [facility] Comment on above: Result Comment: Tiffany dick ECLIA methodology. Performed By: #### P SAFREE #### [facility] [address] [address] [address] Gt Bustamante FREE T3on 12-30-2022 FREE T3 1.73 pg/mlL Critically low 2.18-3.98 [facility] Comment on above: Performed By: #### F T3, TSH #### [facility] [address] [place] [address] Dr. Gt Bustamante FREE T4on 12-30-2022 Free T4 [Mass/Vol] 1.24 ng/dL Normal 0.76-1.46 [facility] Comment on above: Performed By: #### F T3, TSH, BMP, LIPID, LIVER #### [facility] [address] [place] [address] Dr. Gt Bustamante TSHon 12-30-2022 TSH 2.874 uIU/mL Normal 0.358-3.740 The [facility] Comment on above: Performed By: #### F T3, TSH #### [facility] [address] [place] [address] Dr. Gt Bustamante CBC W MANUAL DIFFon 11-05-19 23 ATYPICAL LYMPH # Normal [facility] Comment on above: Performed By: #### C KING #### [facility] [address] [place] [address] Dr. Gt Bustamante ATYPICAL LYMPH % Normal [facility] Comment on above: Performed By: #### C KING #### [facility] [address] [place] [address] Dr. Gt Bustamante BAND # 0.0 103/ul Normal 0.0-0.3 [facility] Comment on above: Performed By: #### C KING #### [facility] [address] [place] [address] Dr. Gt Bustamante BAND % 0 % Normal 0-5 [facility] Comment on above: Performed By: #### C KING #### [facility] [address] [place] [address] Dr. Gt Bustamante BASOM # 0.00 103/ul Normal 0.00-0.10 [facility] Comment on above: Performed By: #### C KING #### [facility] [address] [place] [address] Dr. Gt Bustamante BASOM % 0.0 % Critically low 0.2-2.0 The [facility] Comment on above: Performed By: #### C KING #### [facility] [address] [place] [address] Dr. Gt Bustamante BLAST # Normal [facility] Comment on above: Performed By: #### C KING #### [facility] [address] [address] [address] Gt Bustamante BLAST % Normal [facility] Comment on above: Performed By: #### C KING #### [facility] [address] [address] [address] Gt Bustamante CORRECTED WBC Normal 4.0-11.0 The [facility] Comment on above: Performed By: #### C KING #### [facility] [address] [address] [address] Gt Bustamante EOS # 0.93 103/ul Critically high 0.00-0.70 [facility] Comment on above: Performed By: #### C KING #### [facility] [address] [address] [address] Gt Bustamante EOS% 10.0 % Critically high 0.9-7.0 [facility] Comment on above: Performed By: #### C KING #### [facility] [address] [address] [address] Gt Bustamante HCT 42.4 % Normal 42.0-54.0 [facility] Comment on above: Performed By: #### C KING #### [facility] [address] [place] [address] Dr. Gt Bustamante HGB 13.3 g/dl Critically low 14.0-18.0 [facility] Comment on above: Performed By: #### C KING #### [facility] [address] [address] [address] Gt Bustamante LYMPHM # 1.12 103/ul Critically low 1.20-3.80 [facility] Comment on above: Performed By: #### C KING #### [facility] [address] [address] [address] Gt Bustamante LYMPHM% 12.0 % Critically low 20.5-60.0 [facility] Comment on above: Performed By: #### C KING #### [facility] [address] [address] [address] Gt Bustamante MCH 29.6 pg Normal 25.9-34.0 [facility] Comment on above: Performed By: #### C KING #### [facility] [address] [place] [address] Dr. Gt Bustamante MCHC 31.4 g/dl Normal 29.9-35.2 [facility] Comment on above: Performed By: #### C BCJUAN #### [facility] [address] [address] [address] Gt Bustamante MCV 94.2 fL Critically high 80.0-94.0 [facility] Comment on above: Performed By: #### C BCJUAN #### [facility] [address] [place] [address] Dr. Gt Bustamante METAMYELOCYTE # Normal [facility] Comment on above: Performed By: #### C KING #### [facility] [address] [place] [address] Dr. Gt Bustamante METAMYELOCYTE % Normal [facility] Comment on above: Performed By: #### C KING #### [facility] [address] [place] [address] Dr. Gt Bustamante MONOM# 1.86 103/ul Critically high 0.30-0.80 [facility] Comment on above: Performed By: #### C KING #### [facility] [address] [place] [address] Dr. Gt Bustamante MONOM% 20.0 % Critically high 1.7-12.0 [facility] Comment on above: Performed By: #### C KING #### [facility] [address] [place] [address] Dr. Gt Bustamante MPV 10.0 fL Normal 9.5-13.5 [facility] Comment on above: Performed By: #### C KING #### [facility] [address] [place] [address] Dr. Gt Bustamante MYELOCYTE # Normal [facility] Comment on above: Performed By: #### C BCJUAN #### [facility] [address] [address] [address] Gt Bustamante MYELOCYTE % Normal [facility] Comment on above: Performed By: #### C KING #### [facility] [address] [address] [address] Gt Bustamante NRBC Normal [facility] Comment on above: Performed By: #### C KING #### [facility] [id number] Gt Bustamante PLT 367 103/ul Normal 150-450 [facility] Comment on above: Performed By: #### C KING #### [facility] [address] [address] [address] Gt Bustamante RBC 4.50 106/ul Critically low 4.70-6.10 [facility] Comment on above: Performed By: #### C KING #### [facility] [address] [place] [address] Dr. Gt Bustamante RDW 14.6 % Normal 11.0-15.0 [facility] Comment on above: Performed By: #### C KING #### [facility] [address] [place] [address] Dr. Gt Bustamante SEG # 5.39 103/ul Normal 1.40-6.50 [facility] Comment on above: Performed By: #### C KING #### [facility] [address] [place] [address] Dr. Gt Bustamante SEG % 58.0 % Normal 43.0-75.0 [facility] Comment on above: Performed By: #### C KING #### [facility] [address] [place] [address] Dr. Gt Bustamante WBC 9.3 103/ul Normal 4.0-11.0 [facility] Comment on above: Performed By: #### C KING #### [facility] [address] [place] [address] Dr. Gt Bustamante FREE T3on 11-05-2022 FREE T3 2.00 pg/mlL Critically low 2.18-3.98 [facility] Comment on above: Performed By: #### F T3, TSH, BMP, LIPID, LIVER #### [facility] [address] [place] [address] Dr. Gt Bustamante FREE T4on 11-05-2022 Free T4 [Mass/Vol] 1.17 ng/dL Normal 0.76-1.46 [facility] Comment on above: Performed By: #### F T3, TSH, BMP, LIPID, LIVER #### [facility] [address] [place] [address] Dr. Gt Bustamante GLYCOHEMOGLOBIN A1Con 2022 ADA RECOMMENDATION SEE BELOW Normal [facility] Comment on above: Result Comment: ADA RECOMMENDED LIMIT 4.0 - 6.0 ADA THERAPEUTIC TARGET < 7.0 ACTION SUGGESTED > 7.0 Performed By: #### F T3, TSH, BMP, LIPID, LIVER #### [facility] [address] [place] [address] Dr. Gt Bustamante Glucose [Mass/Vol] 137 mg/dL Normal [facility] Comment on above: Performed By: #### F T3, TSH, BMP, LIPID, LIVER #### [facility] [address] [place] [address] Dr. Gt Bustamante HbA1c (Bld) [Mass fraction] 6.4 % Critically high 4.5-6.2 [facility] Comment on above: Performed By: #### F T3, TSH, BMP, LIPID, LIVER #### [facility] [address] [place] [address] Dr. Gt Bustamante LIPID PROFILEon 11-05-2022 CHOL-HDL RATIO NORM SEE BELOW Normal [facility] Comment on above: Result Comment: 3.3 - 4.4 LOW RISK 4.4 - 7.1 AVERAGE RISK 7.1 - 11.0 MODERATE RISK >11.0 HIGH RISK Performed By: #### F T3, TSH, BMP, LIPID, LIVER #### [facility] [address] [place] [address] Dr. Gt Bustamante Cholesterol [Mass/Vol] 122 mg/dL Normal <=200 [facility] Comment on above: Performed By: #### F T3, TSH, BMP, LIPID, LIVER #### [facility] [address] [address] [address] Gt Bustamante Cholesterol in HDL [Mass/Vol] 44 mg/dL Normal 40-60 [facility] Comment on above: Performed By: #### F T3, TSH, BMP, LIPID, LIVER #### [facility] [address] [address] [address] Gt Bustamante Cholesterol in LDL [Mass/Vol] 50.8 mg/dL Normal [facility] Comment on above: Performed By: #### F T3, TSH, BMP, LIPID, LIVER #### [facility] [address] [address] [address] Gt Bustamante Cholesterol.total/Cho lesterol in HDL [Mass ratio] 2.8 {ratio} Normal [facility] Comment on above: Performed By: #### F T3, TSH, BMP, LIPID, LIVER #### [facility] [address] [address] [address] Gt Bustamante HDL NORMAL > or = 60 mg/dl - LOW CARDIOVASCULAR RISK <40 mg/dl - HIGH CARDIOVASCULAR RISK Normal [facility] Comment on above: Performed By: #### F T3, TSH, BMP, LIPID, LIVER #### [facility] [address] [address] [address] Gt Bustamante LDL CALC NORMAL SEE BELOW Normal [facility] Comment on above: Result Comment: <100 mg/dl OPTIMAL 100 - 129 mg/dl NEAR OR ABOVE OPTIMAL 130 - 159 mg/dl BORDERLINE HIGH 160 - 189 mg/dl HIGH >190 mg/dl VERY HIGH Performed By: #### F T3, TSH, BMP, LIPID, LIVER #### [facility] [address] [address] [address] Gt Bustamante Triglyceride [Mass/Vol] 136 mg/dL Normal <=150 [facility] Comment on above: Performed By: #### F T3, TSH, BMP, LIPID, LIVER #### [facility] [address] [address] [address] Gt Bustamante VLDL CALC 27.2 mg/dL Normal [facility] Comment on above: Performed By: #### F T3, TSH, BMP, LIPID, LIVER #### [facility] [address] [place] [address] Dr. Gt Bustamante LIVER PROFILEon 11-05-2022 Albumin [Mass/Vol] 3.5 g/dL Normal 3.4-5.0 [facility] Comment on above: Performed By: #### F T3, TSH, BMP, LIPID, LIVER #### [facility] [address] [place] [address] Dr. Gt Bustamante Albumin/Globulin [Mass ratio] 1.0 {ratio} Normal [facility] Comment on above: Performed By: #### F T3, TSH, BMP, LIPID, LIVER #### [facility] [address] [place] [address] Dr. Gt Bustamante ALP [Catalytic activity/Vol] 64 U/L Normal 46-116 [facility] Comment on above: Performed By: #### F T3, TSH, BMP, LIPID, LIVER #### [facility] [address] [place] [address] Dr. Gt Bustamante ALT [Catalytic activity/Vol] 23 U/L Normal 16-63 [facility] Comment on above: Performed By: #### F T3, TSH, BMP, LIPID, LIVER #### [facility] [address] [place] [address] Dr. Gt Bustamante AST [Catalytic activity/Vol] 17 U/L Normal 15-37 [facility] Comment on above: Performed By: #### F T3, TSH, BMP, LIPID, LIVER #### [facility] [address] [place] [address] Dr. Gt Bustamante BILI, CONJUGATED 0.1 mg/dL Normal 0.0-0.2 [facility] Comment on above: Performed By: #### F T3, TSH, BMP, LIPID, LIVER #### [facility] [address] [place] [address] Dr. Gt Bustamante Bilirubin [Mass/Vol] 0.6 mg/dL Normal 0.2-1.0 [facility] Comment on above: Performed By: #### F T3, TSH, BMP, LIPID, LIVER #### [facility] [address] [place] [address] Dr. Gt Bustamante Globulin (S) [Mass/Vol] 3.5 g/dL Normal [facility] Comment on above: Performed By: #### F T3, TSH, BMP, LIPID, LIVER #### [facility] [address] [place] [address] Dr. Gt Bustamante Protein [Mass/Vol] 7.0 g/dL Normal 6.4-8.2 [facility] Comment on above: Performed By: #### F T3, TSH, BMP, LIPID, LIVER #### [facility] [address] [place] [address] Dr. Gt Bustamante MICROALBUMIN, RAND URon 02-0 mALB 1.7 mg/L Normal <=30.0 [facility] Comment on above: Performed By: #### M ALBR #### [facility] [address] [place] [address] Dr. Gt Bustamante PROF CHEM 8 (BAS METB)on Anion gap [Moles/Vol] 14.5 mmol/L Normal [facility] Comment on above: Performed By: #### F T3, TSH, BMP, LIPID, LIVER #### [facility] [address] [place] [address] Dr. Gt Bustamante Calcium [Mass/Vol] 8.9 mg/dL Normal 8.5-10.1 [facility] Comment on above: Performed By: #### F T3, TSH, BMP, LIPID, LIVER #### [facility] [address] [place] [address] Dr. Gt Bustamante Chloride [Moles/Vol] 102 mmol/L Normal 98-107 [facility] Comment on above: Performed By: #### F T3, TSH, BMP, LIPID, LIVER #### [facility] [address] [place] [address] Dr. Gt Bustamante CO2 [Moles/Vol] 28.4 mmol/L Normal 21.0-32.0 [facility] Comment on above: Performed By: #### F T3, TSH, BMP, LIPID, LIVER #### [facility] [address] [place] [address] Dr. Gt Bustamante Creatinine [Mass/Vol] 1.44 mg/dL Critically high 0.70-1.30 [facility] Comment on above: Performed By: #### F T3, TSH, BMP, LIPID, LIVER #### [facility] [address] [address] [address] Gt Bustamante EGFR-AF PAP[place] 58 mL/min/1.73m2 Critically low >=60 [facility] Comment on above: Performed By: #### F T3, TSH, BMP, LIPID, LIVER #### [facility] [address] [address] [address] Gt Bustamante EGFR-NON AF P[place] 48 mL/min/1.73m2 Critically low >=60 [facility] Comment on above: Performed By: #### F T3, TSH, BMP, LIPID, LIVER #### [facility] [address] [place] [address] Dr. Gt Bustamante Glucose [Mass/Vol] 114 mg/dL Critically high 74-106 [facility] Comment on above: Performed By: #### F T3, TSH, BMP, LIPID, LIVER #### [facility] [address] [address] [address] Gt Bustamante Potassium [Moles/Vol] 3.9 mmol/L Normal 3.5-5.1 [facility] Comment on above: Performed By: #### F T3, TSH, BMP, LIPID, LIVER #### [facility] [address] [address] [address] Gt Bustamante Sodium [Moles/Vol] 141 mmol/L Normal 136-145 [facility] Comment on above: Performed By: #### F T3, TSH, BMP, LIPID, LIVER #### [facility] [address] [address] [address] Gt Bustamante Urea nitrogen [Mass/Vol] 19.0 mg/dL Critically high 7.0-18.0 [facility] Comment on above: Performed By: #### F T3, TSH, BMP, LIPID, LIVER #### [facility] [address] [address] [address] Gt Bustamante Urea nitrogen/Creatinine [Mass ratio] 13.2 mg/mg Normal [facility] Comment on above: Performed By: #### F T3, TSH, BMP, LIPID, LIVER #### [facility] [address] [address] [address] Gt Bustamante TSHon 11-05-2022 TSH 4.181 uIU/mL Critically high 0.358-3.740 [facility] Comment on above: Performed By: #### F T3, TSH, BMP, LIPID, LIVER #### [facility] [address] [address] [address] Gt Bustamante VITAMIN D 25 OHon 11-05-2022 VIT D 25-OH 68.0 ng/mL Normal [facility] Comment on above: Performed By: #### F T3, TSH, BMP, LIPID, LIVER #### [facility] [address] [address] [address] Gt Bustamante VIT D RANGES SEE BELOW Normal [facility] Comment on above: Result Comment: <20 ng/mL Vit D deficient 20 - <30 ng/mL Vit D insufficient 30 - 100 ng/mL Vit D sufficient >100 ng/mL Potential Toxicity Performed By: #### F T3, TSH, BMP, LIPID, LIVER #### [facility] [address] [address] [address] Gt Bustamante VIT D 25-OH [employer]ABC[employer]on 2021 Vitamin D, 25-Hydroxy 59.7 ng/mL Normal 30.0-100.0 [facility] Comment on above: Result Comment: Rut min D deficiency has been defined by the [place] [employer] and an Endocrine Society practice guideline as a level of serum 25-OH vitamin D less than 20 ng/mL (1,2). The Endocrine Society went on to further define vitamin D insufficiency as a level between 21 and 29 ng/mL (2). 1. IOM ([place] [employer]). 2010. Dietary reference intakes for calcium and D. [place]: The National Academies Press. 2. Tammi HOOPER, Artie [place], Ahmet GUIDO, et al. Evaluation, treatment, and prevention of vitamin D deficiency: an Endocrine Society clinical practice guideline. JCEM. 2010; 96(7):1911-30. Performed By: #### F T3, TSH, BMP, LIPID, LIVER #### [facility] [address] [place] [address] Dr. Gt Bustamante CBC AUTO DIFFon 04-28-2022 BASO # 0.1 103/ul Normal 0.0-0.1 [facility] Comment on above: Performed By: #### F T3, TSH, BMP, LIPID, LIVER #### [facility] [address] [place] [address] Dr. Gt Bustamante Basophils/100 WBC (Bld) 1.6 % Normal 0.2-2.0 [facility] Comment on above: Performed By: #### F T3, TSH, BMP, LIPID, LIVER #### [facility] [address] [place] [address] Dr. Gt Bustamante EO # 0.0 103/ul Normal 0.0-0.7 [facility] Comment on above: Performed By: #### F T3, TSH, BMP, LIPID, LIVER #### [facility] [address] [place] [address] Dr. Gt Bustamante Eosinophils/100 WBC (Bld) 0.0 % Critically low 0.9-7.0 [facility] Comment on above: Performed By: #### F T3, TSH, BMP, LIPID, LIVER #### [facility] [address] [place] [address] Dr. Gt Bustamante Erythrocyte distribution width (RBC) [Ratio] 13.9 % Normal 11.0-15.0 [facility] Comment on above: Performed By: #### F T3, TSH, BMP, LIPID, LIVER #### [facility] [address] [place] [address] Dr. Gt Bustamante Hematocrit (Bld) [Volume fraction] 39.4 % Critically low 42.0-54.0 [facility] Comment on above: Performed By: #### F T3, TSH, BMP, LIPID, LIVER #### [facility] [address] [place] [address] Dr. Gt Bustamante Hemoglobin (Bld) [Mass/Vol] 12.8 g/dL Critically low 14.0-18.0 [facility] Comment on above: Performed By: #### F T3, TSH, BMP, LIPID, LIVER #### [facility] [address] [place] [address] Dr. Gt Bustamante IG # 0.11 10e3/ul Critically high 0.00-0.03 [facility] Comment on above: Performed By: #### F T3, TSH, BMP, LIPID, LIVER #### [facility] [address] [place] [address] Dr. Gt Bustaamnte IG % 1.3 % Critically high 0.0-0.5 [facility] Comment on above: Performed By: #### F T3, TSH, BMP, LIPID, LIVER #### [facility] [address] [place] [address] Dr. Gt Bustamante LYMPH # 1.8 103/ul Normal 1.2-3.8 [facility] Comment on above: Performed By: #### F T3, TSH, BMP, LIPID, LIVER #### [facility] [address] [place] [address] Dr. Gt Bustamante Lymphocytes/100 WBC (Bld) 20.2 % Critically low 20.5-60.0 [facility] Comment on above: Performed By: #### F T3, TSH, BMP, LIPID, LIVER #### [facility] [address] [place] [address] Dr. Gt Bustamante MANUAL DIFF REQ NO Normal [facility] Comment on above: Performed By: #### F T3, TSH, BMP, LIPID, LIVER #### [facility] [address] [place] [address] Dr. Gt Bustamante MCH (RBC) [Entitic mass] 29.5 pg Normal 25.9-34.0 [facility] Comment on above: Performed By: #### F T3, TSH, BMP, LIPID, LIVER #### [facility] [address] [place] [address] Dr. Gt Bustamante MCHC (RBC) [Mass/Vol] 32.5 g/dL Normal 29.9-35.2 [facility] Comment on above: Performed By: #### F T3, TSH, BMP, LIPID, LIVER #### [facility] [address] [address] [address] Gt Bustamante MCV (RBC) [Entitic vol] 90.8 fL Normal 80.0-94.0 [facility] Comment on above: Performed By: #### F T3, TSH, BMP, LIPID, LIVER #### [facility] [address] [place] [address] Dr. Gt Bustamante MONO # 0.9 103/ul Critically high 0.3-0.8 [facility] Comment on above: Performed By: #### F T3, TSH, BMP, LIPID, LIVER #### [facility] [address] [place] [address] Dr. Gt Bustamante Monocytes/100 WBC (Bld) 10.1 % Normal 1.7-12.0 [facility] Comment on above: Performed By: #### F T3, TSH, BMP, LIPID, LIVER #### [facility] [address] [place] [address] Dr. Gt Bustamante NEUT # 5.8 103/ul Normal 1.4-6.5 [facility] Comment on above: Performed By: #### F T3, TSH, BMP, LIPID, LIVER #### [facility] [facility] [address] [place] [address] Dr. Gt Bustamante Neutrophils/100 WBC (Bld) 66.8 % Normal 43.0-75.0 [facility] Comment on above: Performed By: #### F T3, TSH, BMP, LIPID, LIVER #### [facility] [address] [place] [address] Dr. Gt Bustamante Platelet mean volume (Bld) [Entitic vol] 9.3 fL Critically low 9.5-13.5 [facility] Comment on above: Performed By: #### F T3, TSH, BMP, LIPID, LIVER #### [facility] [address] [place] [address] Dr. Gt Bustamante PLT 357 103/ul Normal 150-450 [facility] Comment on above: Performed By: #### F T3, TSH, BMP, LIPID, LIVER #### [facility] [address] [address] [address] Gt Bustamante RBC 4.34 106/ul Critically low 4.70-6.10 [facility] Comment on above: Performed By: #### F T3, TSH, BMP, LIPID, LIVER #### [facility] [address] [address] [address] Gt Bustamante WBC 8.7 103/ul Normal 4.0-11.0 [facility] Comment on above: Performed By: #### F T3, TSH, BMP, LIPID, LIVER #### [facility] [address] [address] [address] Gt Bustamante GLYCOHEMOGLOBIN A1Con 2021 ADA RECOMMENDATION SEE BELOW Normal [facility] Comment on above: Result Comment: ADA RECOMMENDED LIMIT 4.0 - 6.0 ADA THERAPEUTIC TARGET < 7.0 ACTION SUGGESTED > 7.0 Performed By: #### F T3, TSH, BMP, LIPID, LIVER #### [facility] [address] [address] [address] Gt Bustamante Glucose [Mass/Vol] 151 mg/dL Normal [facility] Comment on above: Performed By: #### F T3, TSH, BMP, LIPID, LIVER #### [facility] [address] [address] [address] Gt Bustamante HbA1c (Bld) [Mass fraction] 6.9 % Critically high 4.5-6.2 [facility] Comment on above: Performed By: #### F T3, TSH, BMP, LIPID, LIVER #### [facility] [address] [address] [address] Gt Bustamante LIPID PROFILEon 04-28-2022 CHOL-HDL RATIO NORM SEE BELOW Normal [facility] Comment on above: Result Comment: 3.3 - 4.4 LOW RISK 4.4 - 7.1 AVERAGE RISK 7.1 - 11.0 MODERATE RISK >11.0 HIGH RISK Performed By: #### F T3, TSH, BMP, LIPID, LIVER #### [facility] [address] [address] [address] Gt Bustamante Cholesterol [Mass/Vol] 113 mg/dL Normal <=200 [facility] Comment on above: Performed By: #### F T3, TSH, BMP, LIPID, LIVER #### [facility] [address] [address] [address] Gt Bustamante Cholesterol in HDL [Mass/Vol] 39 mg/dL Critically low 40-60 [facility] Comment on above: Performed By: #### F T3, TSH, BMP, LIPID, LIVER #### [facility] [address] [address] [address] Gt Bustamante Cholesterol in LDL [Mass/Vol] 48.8 mg/dL Normal [facility] Comment on above: Performed By: #### F T3, TSH, BMP, LIPID, LIVER #### [facility] [address] [address] [address] Gt Bustamante Cholesterol.total/Cho lesterol in HDL [Mass ratio] 2.9 {ratio} Normal [facility] Comment on above: Performed By: #### F T3, TSH, BMP, LIPID, LIVER #### [facility] [address] [address] [address] Gt Bustamante HDL NORMAL > or = 60 mg/dl - LOW CARDIOVASCULAR RISK <40 mg/dl - HIGH CARDIOVASCULAR RISK Normal [facility] Comment on above: Performed By: #### F T3, TSH, BMP, LIPID, LIVER #### [facility] [address] [address] [address] Gt Bustamante LDL CALC NORMAL SEE BELOW Normal [facility] Comment on above: Result Comment: <100 mg/dl OPTIMAL 100 - 129 mg/dl NEAR OR ABOVE OPTIMAL 130 - 159 mg/dl BORDERLINE HIGH 160 - 189 mg/dl HIGH >190 mg/dl VERY HIGH Performed By: #### F T3, TSH, BMP, LIPID, LIVER #### [facility] [address] [address] [address] Gt Bustamante Triglyceride [Mass/Vol] 126 mg/dL Normal <=150 [facility] Comment on above: Performed By: #### F T3, TSH, BMP, LIPID, LIVER #### [facility] [address] [address] [address] Gt Bustamante VLDL CALC 25.2 mg/dL Normal [facility] Comment on above: Performed By: #### F T3, TSH, BMP, LIPID, LIVER #### [facility] [address] [place] [address] Dr. Gt Bustamante LIVER PROFILEon 04-28-2022 Albumin [Mass/Vol] 3.4 g/dL Normal 3.4-5.0 [facility] Comment on above: Performed By: #### F T3, TSH, BMP, LIPID, LIVER #### [facility] [address] [place] [address] Dr. Gt Bustamante Albumin/Globulin [Mass ratio] 1.0 {ratio} Normal [facility] Comment on above: Performed By: #### F T3, TSH, BMP, LIPID, LIVER #### [facility] [address] [place] [address] Dr. Gt Bustamante ALP [Catalytic activity/Vol] 57 U/L Normal 46-116 [facility] Comment on above: Performed By: #### F T3, TSH, BMP, LIPID, LIVER #### [facility] [address] [place] [address] Dr. Gt Bustamante ALT [Catalytic activity/Vol] 27 U/L Normal 16-63 [facility] Comment on above: Performed By: #### F T3, TSH, BMP, LIPID, LIVER #### [facility] [address] [place] [address] Dr. Gt Bustamante AST [Catalytic activity/Vol] 14 U/L Critically low 15-37 [facility] Comment on above: Performed By: #### F T3, TSH, BMP, LIPID, LIVER #### [facility] [address] [place] [address] Dr. Gt Bustamante BILI, CONJUGATED 0.1 mg/dL Normal 0.0-0.2 [facility] Comment on above: Performed By: #### F T3, TSH, BMP, LIPID, LIVER #### [facility] [address] [place] [address] Dr. Gt Bustamante Bilirubin [Mass/Vol] 0.5 mg/dL Normal 0.2-1.0 [facility] Comment on above: Performed By: #### F T3, TSH, BMP, LIPID, LIVER #### [facility] [address] [place] [address] Dr. Gt Bustamante Globulin (S) [Mass/Vol] 3.4 g/dL Normal [facility] Comment on above: Performed By: #### F T3, TSH, BMP, LIPID, LIVER #### [facility] [address] [place] [address] Dr. Gt Bustamante Protein [Mass/Vol] 6.8 g/dL Normal 6.4-8.2 [facility] Comment on above: Performed By: #### F T3, TSH, BMP, LIPID, LIVER #### [facility] [address] [place] [address] Dr. Gt Bustamante PROF CHEM 8 (BAS METB)on Anion gap [Moles/Vol] 15.1 mmol/L Normal [facility] Comment on above: Performed By: #### F T3, TSH, BMP, LIPID, LIVER #### [facility] [address] [place] [address] Dr. Gt Bustamante Calcium [Mass/Vol] 9.0 mg/dL Normal 8.5-10.1 [facility] Comment on above: Performed By: #### F T3, TSH, BMP, LIPID, LIVER #### [facility] [address] [place] [address] Dr. Gt Bustamante Chloride [Moles/Vol] 102 mmol/L Normal 98-107 [facility] Comment on above: Performed By: #### F T3, TSH, BMP, LIPID, LIVER #### [facility] [address] [place] [address] Dr. Gt Bustamante CO2 [Moles/Vol] 28.2 mmol/L Normal 21.0-32.0 [facility] Comment on above: Performed By: #### F T3, TSH, BMP, LIPID, LIVER #### [facility] [address] [place] [address] Dr. Gt Bustamante Creatinine [Mass/Vol] 1.60 mg/dL Critically high 0.70-1.30 [facility] Comment on above: Performed By: #### F T3, TSH, BMP, LIPID, LIVER #### [facility] [address] [place] [address] Dr. Gt Bustamante EGFR-AF [place] 51 mL/min/1.73m2 Critically low >=60 [facility] Comment on above: Performed By: #### F T3, TSH, BMP, LIPID, LIVER #### [facility] [address] [place] [address] Dr. Gt Bustamante EGFR-NON AF [place] 42 mL/min/1.73m2 Critically low >=60 [facility] Comment on above: Performed By: #### F T3, TSH, BMP, LIPID, LIVER #### [facility] [address] [place] [address] Dr. Gt Bustamante Glucose [Mass/Vol] 152 mg/dL Critically high 74-106 [facility] Comment on above: Performed By: #### F T3, TSH, BMP, LIPID, LIVER #### [facility] [address] [place] [address] Dr. Gt Bustamante Potassium [Moles/Vol] 4.3 mmol/L Normal 3.5-5.1 [facility] Comment on above: Performed By: #### F T3, TSH, BMP, LIPID, LIVER #### [facility] [address] [place] [address] Dr. Gt Bustamante Sodium [Moles/Vol] 141 mmol/L Normal 136-145 [facility] Comment on above: Performed By: #### F T3, TSH, BMP, LIPID, LIVER #### [facility] [address] [place] [address] Dr. Gt Bustamante Urea nitrogen [Mass/Vol] 20.0 mg/dL Critically high 7.0-18.0 [facility] Comment on above: Performed By: #### F T3, TSH, BMP, LIPID, LIVER #### [facility] [address] [place] [address] Dr. Gt Bustamante Urea nitrogen/Creatinine [Mass ratio] 12.5 mg/mg Normal [facility] Comment on above: Performed By: #### F T3, TSH, BMP, LIPID, LIVER #### [facility] [address] [place], [place] [address] Dr. Gt Bustamante Encounters Encounter Date Encounter [...] F T3, TSH, BMP, LIPID, LIVER #### [facility] [address] [place], [place] [address] Dr. Gt Bustamante Payers Date Payer Category Payer Medicare [id number] 1957 Private Health Insurance [facility] [id number] 1945 Unknown [id number] [id number] 1945 Unknown [id number] 1945 Unknown [id number] Summary Purpose Family History No Family History Records Found Advance Directives No Advanced Directives Records Found Additional Source Comments (unrecognized sect ion and content) No Status Records Found INFORMATION SOURCE (unrecogn ized section and content) DATE CREATED AUTHOR 01/07/2023 The [facility] FOR RECORDS PERTAINING TO PATIENTS WHO ARE [...] BE BASED ON THE PRIMARY CLINICAL RECORDS. [facility] [employer] [facility]. provides no warranty or guarantee of the accuracy or completeness of information in this document.
[2024-05-18 09:20] LABS: Basophils Absolute Auto 0.1 10^3/uL (0.0-0.1); Basophils Percent Auto 1.4 % (0.2-2.0); Eosinophils Percent Auto 0.3 % (0.9-7.0); Hematocrit 38.5 % (42.0-54.0); Hemoglobin 12.8 g/dL (14.0-18.0); Immature Granulocytes Abs Auto 0.07 10^3/uL (0.00-0.03); Immature Granulocytes Pct Auto 0.9 % (0.0-0.5); Lymphocytes Absolute Auto 1.6 10^3/uL (1.2-3.8); Lymphocytes Percent Auto 19.6 % (20.5-60.0); Mean Corpuscular HGB Conc 33.2 g/dL (29.9-35.2); Mean Corpuscular Hemoglobin 30.3 pg (25.9-34.0); Monocytes Absolute Auto 0.8 10^3/uL (0.3-0.8); Monocytes Percent Auto 10.4 % (1.7-12.0); Neutrophils Absolute Auto 5.3 10^3/uL (1.4-6.5); Neutrophils Percent Auto 67.4 % (43.0-75.0); Platelet Count 278 10^3/uL (150-450); Red Blood Count 4.23 10^6/uL (4.70-6.10); Red Cell Distribution Width 14.1 % (11.0-15.0); White Blood Count 7.9 10^3/uL (4.0-11.0)
[2024-05-18 10:23] LABS: Estimated Average Glucose 148 mg/dL; Glycohemoglobin A1C 6.8 % (4.5-6.2)
[2024-05-18 10:51] LABS: Anion Gap 13.7; BUN Creatinine Ratio 11.4; Calcium 8.8 mg/dL (8.5-10.1); Carbon Dioxide 27.2 mmol/L (21.0-32.0); Chloride 101 mmol/L (98-107); Chol HDL Ratio 2.6; Cholesterol 111 mg/dL (<=200); Estimated GFR (African America 49 (>=60); Estimated GFR (Non-African Ame 40 (>=60); Free T3 1.78 pg/mL (2.18-3.98); Glucose 136 mg/dL (74-106); HDL Cholesterol 42 mg/dL (40-60); LDL Cholesterol Calculated 48.6 mg/dL; Potassium 3.9 mmol/L (3.5-5.1); Sodium 138 mmol/L (136-145); Thyroid Stimulating Hormone 3.214 uIU/mL (0.358-3.740); Triglycerides 102 mg/dL (<=150); VLDL CHOLESTEROL 20.4 mg/dL
[2024-05-18 11:26] LABS: Prostate Specific Antigen Scrn 3.78 ng/mL (<=4.00)
[2024-05-18 11:43] LABS: Free T4 1.18 ng/dL (0.76-1.46)
== END 2024-05-18 08:52 | disposition home or self-care (01) ==
LOC: LAB 08:51
PROVIDERS: PCP Family Medicine; Visit Provider Family Medicine
DX: E11.65 Type 2 diabetes mellitus with hyperglycemia (principal); Z79.899 Other long term (current) drug therapy; E78.5 Hyperlipidemia, unspecified; E03.9 Hypothyroidism, unspecified; Z12.5 Encounter for screening for malignant neoplasm of prostate
CPT/HCPCS: 36415; 80048; 80061; 83036; 84439; 84443; 84481; 85025; G0103

== ENCOUNTER 2024-09-17 08:53 | Outpatient (OUT) | payer OTHER, SELFPAY ==
--- OUTSIDE RECORDS SUMMARY | 2024-09-17 09:13 | XMS_ITS | CCD ---
Author Organization [facility] Care Team Providers Care Bookbinder Chief Name Role Phone CHRISTIANO, DR PK Fowler Attending Unavailable NADMICHAEL, DR PK Fowler Consulting Unavailable NADERER, DR PK Fowler Primary Care Unavailable NADERER, DR PK Fowler Admitting Unavailable NADERER, DR PK Fowler Consulting Unavailable NADERER, DR PK Fowler Primary Care Unavailable NADERER, DR PK Fowler Admitting Unavailable NADEREIssac, DR PK Fowler Attending Unavailable CHRISTIANO, DR PK Fowler Consulting Unavailable CHRISTIANO, DR PK Fowler Primary Care Unavailable NADEREIssac, DR PK Fowler Admitting Unavailable NADEREIssac, DR PK Fowler Attending Unavailable Pk Alvarado MD Primary Care Provider Pk Alvarado MD Unavailable PK ALVARADO Attending Unavailable NADEREIssac, PK Attending Unavailable FLOROMULO LUCERO Attending Unavailable NADERER, PK Attending Unavailable Medications Current Medications Medication Drug Class(es) Dates Sig (Normalized) Sig (Original) amLODIPine 10 mg oral tablet (6 sources) Dihydropyridine Calcium Channel Brody Start: 09-03-2024 take 1 tablet by mouth once daily amLODIPine (Norvasc) 10 MG tablet Indications: Essential (primary) hypertension (CMS/HCC) TAKE 1 TABLET BY MOUTH DAILY 90 tablet 3 09/03/2024 Active Start: 09-07-2023 take 1 tablet by adeline th once daily amLODIPine (Norvasc) 10 MG tablet Indications: Essential (primary) hypertension (CMS/HCC) TAKE 1 TABLET BY MOUTH DAILY 90 tablet 3 09/07/2023 Active atorvastatin 20 mg oral tablet (7 sources) HMG-CoA Reductase Inhibitor Start: 05-28-2024 take 1 tablet by mouth at bedtime atorvastatin (Lipitor) 20 MG tablet Indications: Type 2 diabetes mellitus with hyperglycemia, without long-term current use of insulin (CMS/HCC) Take 1 tablet (20 mg) by mouth at bedtime 90 tablet 3 05/28/2024 Active Blood Glucose Monitoring Suppl (GNP True Metrix Glucose Meter) w/Device kit (7 sources) Start: 12-02-2023 Blood Glucose Monitoring Suppl (GNP True Metrix Glucose Meter) w/Device kit Indications: Type 2 diabetes mellitus with hyperglycemia, without long-term current use of insulin (CMS/HCC) 1 each Daily 1 kit 12/02/2023 Active cholecalciferol 0.025 mg oral tablet (7 sources) Vitamin D take 1 tablet by mouth in the morning cholecalciferol (Vitamin D-3) 25 MCG (1000 UT) tablet Take 1,000 Units by mouth in the morning. Active furosemide 40 mg oral tablet (6 sources) Loop Diuretic Start: 09-03-2024 take 1 tablet by mouth twice daily furosemide (Lasix) 40 MG tablet Indications: Venous insufficiency (chronic) (peripheral) TAKE 1 TABLET BY MOUTH TWICE DAILY 60 tablet 3 09/03/2024 Active Start: 02-24-2024 take 1 tablet by adeline th twice daily furosemide (Lasix) 40 MG tablet Indications: Venous insufficiency (chronic) (peripheral) TAKE 1 TABLET BY MOUTH TWICE DAILY 60 tablet 5 02/24/2024 Active glipiZIDE 5 mg oral tablet (7 sources) Sulfonylurea Start: 05-28-2024 take 1 tablet by mouth once daily glipiZIDE (Glucotrol) 5 MG tablet Indications: Type 2 diabetes mellitus with hyperglycemia, without long-term current use of insulin (CMS/HCC) Take 1 tablet (5 mg) by mouth Daily 90 tablet 3 05/28/2024 Active levothyroxine sodium 0.1 mg oral tablet (6 sources) l-Thyroxine Start: 09-03-2024 take 1 tablet by mouth in the morning levothyroxine (Synthroid, Levoxyl) 100 MCG tablet Indications: Primary hypothyroidism (CMS/HCC) TAKE 1 TABLET BY MOUTH IN THE MORNING 90 tablet 3 09/03/2024 Active Start: 09-07-2023 take 1 tablet by adeline th in the morning levothyroxine (Synthroid, Levoxyl) 100 MCG tablet Indications: Primary hypothyroidism (CMS/HCC) Take 1 tablet (100 mcg) by mouth in the morning. 90 tablet 3 09/07/2023 Active losartan potassium 100 mg oral tablet (7 sources) Angiotensin 2 Receptor Bordy Start: 05-28-2024 take 1 tablet by mouth once daily losartan (Cozaar) 100 MG tablet Indications: Benign essential hypertension (CMS/HCC) Take 1 tablet (100 mg) by mouth Daily 90 tablet 3 05/28/2024 Active montelukast 10 mg oral tablet (7 sources) Leukotriene Receptor Antagonist Start: 05-25-2024 take 1 tablet by mouth at bedtime montelukast (Singulair) 10 MG tablet Indications: Allergic rhinitis due to pollen TAKE 1 TABLET BY MOUTH AT BEDTIME 90 tablet 3 05/25/2024 Active omeprazole 20 mg delayed release oral capsule (7 sources) Proton Pump Inhibitor Start: 05-28-2024 take 1 capsule by mouth once daily omeprazole (PriLOSEC) [address] capsule Indications: Gastroesophageal reflux disease without esophagitis Take 1 capsule (20 mg) by mouth Daily 90 capsule 3 05/28/2024 Active pioglitazone 45 mg oral tablet (7 sources) Peroxisome Proliferator Receptor alpha Agonist, Peroxisome Proliferator Receptor gamma Agonist, Thiazolidinedione Start: 05-28-2024 take 1 tablet by mouth once daily pioglitazone (Actos) 45 MG tablet Indications: Type 2 diabetes mellitus with hyperglycemia, without long-term current use of insulin (CMS/HCC) Take 1 tablet (45 mg) by mouth Daily 90 tablet 3 05/28/2024 Active potassium chloride 20 meq extended release oral tablet (10 sources) Start: 09-03-2024 take 1 tablet by mouth twice daily potassium chloride CR (K-Tab) 20 MEQ ER tablet Indications: Venous insufficiency (chronic) (peripheral) TAKE 1 TABLET BY MOUTH TWICE DAILY 180 tablet 3 09/03/2024 Active take 1 tablet by mouth in the mo rning potassium chloride CR (Klor-Con M20) 20 MEQ ER tablet Take 20 mEq by mouth in the morning and 20 mEq before bedtime. Do not crush or chew.. Active traZODone hydrochloride 100 mg oral tablet (7 sources) Serotonin Reuptake Inhibitor Start: 01-23-2024 End: 01-22-2025 take 1 tablet by mouth at bedtime traZODone (Desyrel) 100 MG tablet Indications: Primary insomnia Take 1 tablet (100 mg) by mouth at bedtime 30 tablet 11 01/23/2024 01/22/2025 Active triamcinolone acetonide 5 mg/ml topical cream (7 sources) Corticosteroid Start: 08-01-2024 triamcinolone (Kenalog) 0.5 % cream Indications: Dermatitis APPLY TO THE AFFECTED AREA(S) topically THREE TIMES DAILY 60 g 1 08/01/2024 Active Problems Active Problems Problem Classification Problem Date Documented Date Episodic/Chronic Chronic kidney disease (7 sources) Chronic kidney disease stage 3B ; Translations: [Stage 3b chronic kidney disease (CKD)] Onset: 11-22-2023 11-22-2023 Chronic Diabetes mellitus with complications (17 sources) Type 2 diabetes mellitus with hyperglycemia; Translations: [Polyneuropathy due to type 2 diabetes mellitus] Onset: 11-07-2022 11-22-2023 Chronic Disorders of lipid metabolism (8 sources) Hyperlipidemia, unspecified; Translations: [Dyslipidemia] Onset: 05-01-2022 11-22-2023 Chronic Esophageal disorders (7 sources) Gastroesophageal reflux disease; Translations: [Gastro-esophageal reflux disease without esophagitis] Onset: 11-22-2023 11-22-2023 Chronic Essential hypertension (11 sources) Essential (primary) hypertension; Translations: [Benign essential hypertension] Onset: 11-05-2022 Chronic Miscellaneous mental health disorders (7 sources) Primary insomnia; Translations: [Primary insomnia] Onset: 11-22-2023 11-22-2023 Chronic Nutritional deficiencies (12 sources) Vitamin D deficiency, unspecified; Translations: [Vitamin D deficiency] Onset: 04-28-2022 Chronic Osteoarthritis (14 sources) Primary coxarthrosis, bilateral; Translations: [Bilateral primary osteoarthritis of hip] Onset: 11-22-2023 11-22-2023 Chronic Other aftercare (1 source) 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; Translations: [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] Onset: 11-07-2022 Episodic Other lower respiratory disease (2 sources) Hypoxia; Translations: [Hypoxemia] 08-29-2024 Episodic Other lower respiratory disease (2 sources) Snoring; Translations: [Snoring] 08-29-2024 Episodic Other nutritional; endocrine; and metabolic disorders (5 sources) Morbid obesity; Translations: [Morbid (severe) obesity due to excess calories] Onset: 11-22-2023 11-22-2023 Chronic Other nutritional; endocrine; and metabolic disorders (4 sources) Severe obesity; Translations: [Class 3 severe obesity due to excess calories with serious comorbidity and body mass index (BMI) of 45.0 to 49.9 in adult ([facility])] Onset: 11-22-2023 08-29-2024 Chronic Other upper respiratory infections (7 sources) Chronic pansinusitis; Translations: [Chronic pansinusitis] Onset: 11-22-2023 11-22-2023 Chronic Residual codes; unclassified (10 sources) Obstructive sleep apnea syndrome; Translations: [Obstructive sleep apnea (adult) (pediatric)] Onset: 11-22-2023 11-22-2023 Chronic Residual codes; unclassified (2 sources) Hypersomnia; Translations: [Hypersomnia, unspecified] 08-29-2024 Chronic Thyroid disorders (8 sources) Hypothyroidism, unspecified; Translations: [Hypothyroidism] Onset: 01-05-2023 11-22-2023 Chronic Past or Other Problems Problem Classification Problem Date Documented Date Episodic/Chronic Allergic reactions (7 sources) Inflammatory dermatosis; Translations: [Dermatitis, unspecified] Onset: 11-30-2023 11-30-2023 Episodic Mood disorders (2 sources) Mood disorders Onset: 09-12-2024 09-12-2024 Other aftercare (7 sources) Long-term current use of drug therapy; Translations: [Other assisted (current) drug therapy] Onset: 11-22-2023 11-22-2023 Episodic Other diseases of veins and lymphatics (7 sources) Vascular insufficiency; Translations: [Venous insufficiency (chronic) (peripheral)] Onset: 11-30-2023 11-30-2023 Episodic Other screening for suspected conditions (not mental disorders or infectious disease) (12 sources) Elevated prostate specific antigen [PSA]; Translations: [Encounter for screening for malignant neoplasm of prostate] Onset: 11-07-2022 Episodic Results Test Name Value Interpretation Reference Range Facil ity PSA, FREE AND TOTAL RATIOon 12-31-2022 % Free PSA 17.2 % Normal [facility] Comment on above: Result Comment: The table [...] men. Performed By: #### P SAFREE #### [facility] [address] [address] [address] Gt Bustamante Prostate specific Ag [Mass/Vol] 3.2 ng/mL Normal 0.0-4.0 [facility] Comment on above: Result Comment: Tiffany MASTIA methodology. . According to the [employer], Serum PSA should decrease and [...] disease. Performed By: #### P SAFREE #### [facility] [address] [place] [address] Dr. Gt Bustamante PSA, Free 0.55 ng/mL Normal N/A [facility] Comment on above: Result Comment: Tiffany dick ECLFABRICIO methodology. Performed By: #### P SAFREE #### [facility] [address] [place] [address] Dr. Gt Bustamante FREE T3on 12-30-2022 FREE T3 1.73 pg/mlL Critically low 2.18-3.98 [facility] Comment on above: Performed By: #### F T3, TSH #### [facility] [address] [place] [address] Dr. Gt Bustamante FREE T4on 12-30-2022 Free T4 [Mass/Vol] 1.24 ng/dL Normal 0.76-1.46 [facility] Comment on above: Performed By: #### F T3, TSH, BMP, LIPID, LIVER #### [facility] [address] [address] [address] Gt Bustamante TSHon 12-30-2022 TSH 2.874 uIU/mL Normal 0.358-3.740 [facility] Comment on above: Performed By: #### F T3, TSH #### [facility] [address] [place] [address] Dr. Gt Bustamante CBC W MANUAL DIFFon 11-05-19 ATYPICAL LYMPH # Normal [facility] Comment on above: Performed By: #### C BCMAN #### [facility] [address] [place] [address] Dr. Gt Bustamante ATYPICAL LYMPH % Normal [facility] Comment on above: Performed By: #### C BCMAN #### [facility] [address] [place] [address] Dr. Gt Bustamante BAND # 0.0 103/ul Normal 0.0-0.3 [facility] Comment on above: Performed By: #### C BCMAN #### [facility] [address] [place] [address] Dr. Gt Bustamante BAND % 0 % Normal 0-5 [facility] Comment on above: Performed By: #### C BCMAN #### [facility] [address] [place] [address] Dr. Gt Bustamante BASOM # 0.00 103/ul Normal 0.00-0.10 [facility] Comment on above: Performed By: #### C BCMAN #### [facility] [address] [place] [address] Dr. Gt Bustamante BASOM % 0.0 % Critically low 0.2-2.0 [facility] Comment on above: Performed By: #### C BCMAN #### [facility] [address] [place] [address] Dr. Gt Bustamante BLAST # Normal [facility] Comment on above: Performed By: #### C BCMAN #### [facility] [address] [place] [address] Dr. Gt Bustamante BLAST % Normal [facility] Comment on above: Performed By: #### C BCMAN #### [facility] [address] [place] [address] Dr. Gt Bustamante CORRECTED WBC Normal 4.0-11.0 [facility] Comment on above: Performed By: #### C BCMAN #### [facility] [address] [address] [address] Gt Bustamante EOS # 0.93 103/ul Critically high 0.00-0.70 [facility] Comment on above: Performed By: #### C BCMAN #### [facility] [address] [address] [address] Gt Bustamante EOS% 10.0 % Critically high 0.9-7.0 [facility] Comment on above: Performed By: #### C BCMAN #### [facility] [address] [address] [address] Gt Bustamante HCT 42.4 % Normal 42.0-54.0 [facility] Comment on above: Performed By: #### C BCJUAN #### [facility] [address] [place] [address] Dr. Gt Bustamante HGB 13.3 g/dl Critically low 14.0-18.0 [facility] Comment on above: Performed By: #### C BCJUAN #### [facility] [address] [place] [address] Dr. Gt Bustamante LYMPHM # 1.12 103/ul Critically low 1.20-3.80 [facility] Comment on above: Performed By: #### C BCJUAN #### [facility] [address] [address] [address] Gt Bustamante LYMPHM% 12.0 % Critically low 20.5-60.0 [facility] Comment on above: Performed By: #### C BCMAN #### [facility] [address] [address] [address] Gt Bustamante MCH 29.6 pg Normal 25.9-34.0 [facility] Comment on above: Performed By: #### C BCMAN #### [facility] [address] [address] [address] Gt Bustamante MCHC 31.4 g/dl Normal 29.9-35.2 [facility] Comment on above: Performed By: #### C KING #### [facility] [address] [address] [address] Gt Bustamante MCV 94.2 fL Critically high 80.0-94.0 [facility] Comment on above: Performed By: #### C KING #### [facility] [address] [address] [address] Gt Bustamante METAMYELOCYTE # Normal [facility] Comment on above: Performed By: #### C KING #### [facility] [address] [place] [address] Dr. Gt Bustamante METAMYELOCYTE % Normal [facility] Comment on above: Performed By: #### C KING #### [facility] [address] [place] [address] Dr. Gt Bustamante MONOM# 1.86 103/ul Critically high 0.30-0.80 [facility] Comment on above: Performed By: #### C KING #### [facility] [address] [place] [address] Dr. Gt Bustamante MONOM% 20.0 % Critically high 1.7-12.0 [facility] Comment on above: Performed By: #### C KING #### [facility] [address] [place] [address] Dr. Gt Bustamante MPV 10.0 fL Normal 9.5-13.5 [facility] Comment on above: Performed By: #### C KING #### [facility] [address] [place] [address] Dr. Gt Bustamante MYELOCYTE # Normal [facility] Comment on above: Performed By: #### C KING #### [facility] [address] [place] [address] Dr. Gt Bustamante MYELOCYTE % Normal [facility] Comment on above: Performed By: #### C KING #### [facility] [address] [place] [address] Dr. Gt Bustamante NRBC Normal [facility] Comment on above: Performed By: #### C KING #### [facility] [id number] tG Bustamante PLT 367 103/ul Normal 150-450 [facility] Comment on above: Performed By: #### C KING #### [facility] [address] [address] [address] Gt Bustamante RBC 4.50 106/ul Critically low 4.70-6.10 [facility] Comment on above: Performed By: #### C KING #### [facility] [address] [address] [address] Gt Bustamante RDW 14.6 % Normal 11.0-15.0 [facility] Comment on above: Performed By: #### C KING #### [facility] [address] [place] [address] Dr. Gt Bustamante SEG # 5.39 103/ul Normal 1.40-6.50 [facility] Comment on above: Performed By: #### C KING #### [facility] [address] [place] [address] Dr. Gt Bustamante SEG % 58.0 % Normal 43.0-75.0 [facility] Comment on above: Performed By: #### C KING #### [facility] [address] [place] [address] Dr. Gt Bustamante WBC 9.3 103/ul Normal 4.0-11.0 [facility] Comment on above: Performed By: #### Donny MALIK #### [facility] [address] [place] [address] Dr. Gt Bustamante FREE T3on 11-05-2022 FREE T3 2.00 pg/mlL Critically low 2.18-3.98 [facility] Comment on above: Performed By: #### F T3, TSH, BMP, LIPID, LIVER #### [facility] [address] [place] [address] Dr. Gt Bustamante FREE T4on 11-05-2022 Free T4 [Mass/Vol] 1.17 ng/dL Normal 0.76-1.46 [facility] Comment on above: Performed By: #### F T3, TSH, BMP, LIPID, LIVER #### [facility] [address] [address] [address] Gt Bustamante GLYCOHEMOGLOBIN A1Con 2022 ADA RECOMMENDATION SEE BELOW Normal [facility] Comment on above: Result Comment: ADA RECOMMENDED LIMIT 4.0 - 6.0 ADA THERAPEUTIC TARGET < 7.0 ACTION SUGGESTED > 7.0 Performed By: #### F T3, TSH, BMP, LIPID, LIVER #### [facility] [address] [place] [address] Dr. Gt Bustamante Glucose [Mass/Vol] 137 mg/dL Normal [facility] Comment on above: Performed By: #### F T3, TSH, BMP, LIPID, LIVER #### [facility] [address] [place] [address] Dr. Gt Bustamante HbA1c (Bld) [Mass fraction] 6.4 % Critically high 4.5-6.2 [facility] Comment on above: Performed By: #### F T3, TSH, BMP, LIPID, LIVER #### [facility] [address] [place] [address] Dr. Gt Bustamante LIPID PROFILEon 11-05-2022 CHOL-HDL RATIO NORM SEE BELOW Normal [facility] Comment on above: Result Comment: 3.3 - 4.4 LOW RISK 4.4 - 7.1 AVERAGE RISK 7.1 - 11.0 MODERATE RISK >11.0 HIGH RISK Performed By: #### F T3, TSH, BMP, LIPID, LIVER #### [facility] [address] [place] [address] Dr. Gt Bustamante Cholesterol [Mass/Vol] 122 mg/dL Normal <=200 [facility] Comment on above: Performed By: #### F T3, TSH, BMP, LIPID, LIVER #### [facility] [address] [place] [address] Dr. Gt Bustamante Cholesterol in HDL [Mass/Vol] 44 mg/dL Normal 40-60 [facility] Comment on above: Performed By: #### F T3, TSH, BMP, LIPID, LIVER #### [facility] [address] [place] [address] Dr. Gt Bustamante Cholesterol in LDL [Mass/Vol] 50.8 mg/dL Normal [facility] Comment on above: Performed By: #### F T3, TSH, BMP, LIPID, LIVER #### [facility] [address] [address] [address] Gt Bustamante Cholesterol.total/Cho lesterol in HDL [Mass ratio] 2.8 {ratio} Normal [facility] Comment on above: Performed By: #### F T3, TSH, BMP, LIPID, LIVER #### [facility] [address] [address] [address] Gt Bustamante HDL NORMAL > or = 60 mg/dl - LOW CARDIOVASCULAR RISK <40 mg/dl - HIGH CARDIOVASCULAR RISK Normal [facility] Comment on above: Performed By: #### F T3, TSH, BMP, LIPID, LIVER #### [facility] [address] [address] [address] Gt Bustamante LDL CALC NORMAL SEE BELOW Normal [facility] Comment on above: Result Comment: <100 mg/dl OPTIMAL 100 - 129 mg/dl NEAR OR ABOVE OPTIMAL 130 - 159 mg/dl BORDERLINE HIGH 160 - 189 mg/dl HIGH >190 mg/dl VERY HIGH Performed By: #### F T3, TSH, BMP, LIPID, LIVER #### [facility] [address] [place] [address] Dr. Gt Bustamante Triglyceride [Mass/Vol] 136 mg/dL Normal <=150 [facility] Comment on above: Performed By: #### F T3, TSH, BMP, LIPID, LIVER #### [facility] [address] [address] [address] Gt Bustamante VLDL CALC 27.2 mg/dL Normal [facility] Comment on above: Performed By: #### F T3, TSH, BMP, LIPID, LIVER #### [facility] [address] [address] [address] Gt Bustamante LIVER PROFILEon 11-05-2022 Albumin [Mass/Vol] 3.5 g/dL Normal 3.4-5.0 [facility] Comment on above: Performed By: #### F T3, TSH, BMP, LIPID, LIVER #### [facility] [address] [place], [place] [id number] Dr. Gt Bustamante Albumin/Globulin [Mass ratio] 1.0 {ratio} Normal [facility] Comment on above: Performed By: #### F T3, TSH, BMP, LIPID, LIVER #### [facility] [address] [place] [address] Dr. Gt Bustamante ALP [Catalytic activity/Vol] 64 U/L Normal 46-116 [facility] Comment on above: Performed By: #### F T3, TSH, BMP, LIPID, LIVER #### [facility] [address] [place] [address] Dr. Gt Bustamante ALT [Catalytic activity/Vol] 23 U/L Normal 16-63 [facility] Comment on above: Performed By: #### F T3, TSH, BMP, LIPID, LIVER #### [facility] [address] [place] [address] Dr. Gt Bustamante AST [Catalytic activity/Vol] 17 U/L Normal 15-37 [facility] Comment on above: Performed By: #### F T3, TSH, BMP, LIPID, LIVER #### [facility] [address] [place] [address] Dr. Gt Bustamante BILI, CONJUGATED 0.1 mg/dL Normal 0.0-0.2 [facility] Comment on above: Performed By: #### F T3, TSH, BMP, LIPID, LIVER #### [facility] [address] [place] [address] Dr. Gt Bustamante Bilirubin [Mass/Vol] 0.6 mg/dL Normal 0.2-1.0 [facility] Comment on above: Performed By: #### F T3, TSH, BMP, LIPID, LIVER #### [facility] [address] [place] [address] Dr. Gt Bustamante Globulin (S) [Mass/Vol] 3.5 g/dL Normal [facility] Comment on above: Performed By: #### F T3, TSH, BMP, LIPID, LIVER #### [facility] [address] [place] [address] Dr. Gt Bustamante Protein [Mass/Vol] 7.0 g/dL Normal 6.4-8.2 [facility] Comment on above: Performed By: #### F T3, TSH, BMP, LIPID, LIVER #### [facility] [address] [address] [address] Gt Bustamante MICROALBUMIN, RAND URon 02-0 mALB 1.7 mg/L Normal <=30.0 [facility] Comment on above: Performed By: #### M ALBR #### [facility] [address] [address] [address] Gt Bustamante PROF CHEM 8 (BAS METB)on Anion gap [Moles/Vol] 14.5 mmol/L Normal [facility] Comment on above: Performed By: #### F T3, TSH, BMP, LIPID, LIVER #### [facility] [address] [place] [address] Dr. Gt Bustamante Calcium [Mass/Vol] 8.9 mg/dL Normal 8.5-10.1 [facility] Comment on above: Performed By: #### F T3, TSH, BMP, LIPID, LIVER #### [facility] [address] [place] [address] Dr. Gt Bustamante Chloride [Moles/Vol] 102 mmol/L Normal 98-107 [facility] Comment on above: Performed By: #### F T3, TSH, BMP, LIPID, LIVER #### [facility] [address] [place] [address] Dr. Gt Bustamante CO2 [Moles/Vol] 28.4 mmol/L Normal 21.0-32.0 [facility] Comment on above: Performed By: #### F T3, TSH, BMP, LIPID, LIVER #### [facility] [address] [place] [address] [address] Gt Bustamante Creatinine [Mass/Vol] 1.44 mg/dL Critically high 0.70-1.30 [facility] Comment on above: Performed By: #### F T3, TSH, BMP, LIPID, LIVER #### [facility] [address] [place] [address] [address] Gt Bustamante EGFR-AF [place]IZ[place] 58 mL/min/1.73m2 Critically low >=60 [facility] Comment on above: Performed By: #### F T3, TSH, BMP, LIPID, LIVER #### [facility] [address] [place] [address] [address] Gt Bustamante EGFR-NON AF CITIZEN OF [place] 48 mL/min/1.73m2 Critically low >=60 [facility] Comment on above: Performed By: #### F T3, TSH, BMP, LIPID, LIVER #### [facility] [address] [place] [address] [address] Gt Bustamante Glucose [Mass/Vol] 114 mg/dL Critically high 74-106 [facility] Comment on above: Performed By: #### F T3, TSH, BMP, LIPID, LIVER #### [facility] [address] [place] [address] Dr. Gt Bustamante Potassium [Moles/Vol] 3.9 mmol/L Normal 3.5-5.1 [facility] Comment on above: Performed By: #### F T3, TSH, BMP, LIPID, LIVER #### [facility] [address] [place] [address] Dr. Gt Bustamante Sodium [Moles/Vol] 141 mmol/L Normal 136-145 [facility] Comment on above: Performed By: #### F T3, TSH, BMP, LIPID, LIVER #### [facility] [address] [place] [address] Dr. Gt Bustamante Urea nitrogen [Mass/Vol] 19.0 mg/dL Critically high 7.0-18.0 [facility] Comment on above: Performed By: #### F T3, TSH, BMP, LIPID, LIVER #### [facility] [address] [place] [address] Dr. Gt Bustamante Urea nitrogen/Creatinine [Mass ratio] 13.2 mg/mg Normal [facility] Comment on above: Performed By: #### F T3, TSH, BMP, LIPID, LIVER #### [facility] [address] [place] [address] Dr. Gt Bustamante TSHon 11-05-2022 TSH 4.181 uIU/mL Critically high 0.358-3.740 [facility] Comment on above: Performed By: #### F T3, TSH, BMP, LIPID, LIVER #### [facility] [address] [place] [address] [address] Gt Bustamante VITAMIN D 25 OHon 11-05-2022 VIT D 25-OH 68.0 ng/mL Normal [facility] Comment on above: Performed By: #### F T3, TSH, BMP, LIPID, LIVER #### [facility] [address] [place] [address] [address] Gt Bustamante VIT D RANGES SEE BELOW Normal [facility] Comment on above: Result Comment: <20 ng/mL Vit D deficient 20 - <30 ng/mL Vit D insufficient 30 - 100 ng/mL Vit D sufficient >100 ng/mL Potential Toxicity Performed By: #### F T3, TSH, BMP, LIPID, LIVER #### [facility] [address] [place] [address] Dr. Gt Bustamante VIT D 25-OH [facility] 2021 Vitamin D, 25-Hydroxy 59.7 ng/mL Normal 30.0-100.0 [facility] Comment on above: Result Comment: Rut min D deficiency has been defined by the [place] of [employer] and an Endocrine Society practice guideline as a level of serum 25-OH vitamin D less than 20 ng/mL (1,2). The Endocrine Society went on to further define vitamin D insufficiency as a level between 21 and 29 ng/mL (2). 1. IOM ([place] of [employer]). 2010. Dietary reference intakes for calcium and D. [place]: The National Academies Press. 2. Tammi MF, Artie NC, Ahmet GUIDO, et al. Evaluation, treatment, and prevention of vitamin D deficiency: an Endocrine Society clinical practice guideline. JCEM. 2010; 96(7):1911-30. Performed By: #### F T3, TSH, BMP, LIPID, LIVER #### [facility] [address] [place] [address] [address] Gt Bustamante CBC AUTO DIFFon 04-28-2022 BASO # 0.1 103/ul Normal 0.0-0.1 [facility] Comment on above: Performed By: #### F T3, TSH, BMP, LIPID, LIVER #### [facility] [address] [place] [address] Dr. Gt Bustamante Basophils/100 WBC (Bld) 1.6 % Normal 0.2-2.0 [facility] Comment on above: Performed By: #### F T3, TSH, BMP, LIPID, LIVER #### [facility] [address] [place] [address] Dr. Gt Bustamante EO # 0.0 103/ul Normal 0.0-0.7 [facility] Comment on above: Performed By: #### F T3, TSH, BMP, LIPID, LIVER #### [facility] [address] [place] [address] Dr. Gt Bustamante Eosinophils/100 WBC (Bld) 0.0 % Critically low 0.9-7.0 [facility] Comment on above: Performed By: #### F T3, TSH, BMP, LIPID, LIVER #### [facility] [address] [place] [address] Dr. Gt Bustamante Erythrocyte distribution width (RBC) [Ratio] 13.9 % Normal 11.0-15.0 [facility] Comment on above: Performed By: #### F T3, TSH, BMP, LIPID, LIVER #### [facility] [address] [place] [address] Dr. Gt Bustamante Hematocrit (Bld) [Volume fraction] 39.4 % Critically low 42.0-54.0 [facility] Comment on above: Performed By: #### F T3, TSH, BMP, LIPID, LIVER #### [facility] [address] [place] [address] Dr. Gt Bustamante Hemoglobin (Bld) [Mass/Vol] 12.8 g/dL Critically low 14.0-18.0 [facility] Comment on above: Performed By: #### F T3, TSH, BMP, LIPID, LIVER #### [facility] [address] [place] [address] Dr. Gt Bustamante IG # 0.11 10e3/ul Critically high 0.00-0.03 [facility] Comment on above: Performed By: #### F T3, TSH, BMP, LIPID, LIVER #### [facility] [address] [place] [address] Dr. Gt Bustamante IG % 1.3 % Critically high 0.0-0.5 [facility] Comment on above: Performed By: #### F T3, TSH, BMP, LIPID, LIVER #### [facility] [address] [place] [address] Dr. Gt Bustamante LYMPH # 1.8 103/ul Normal 1.2-3.8 [facility] Comment on above: Performed By: #### F T3, TSH, BMP, LIPID, LIVER #### [facility] [address] [place] [address] Dr. Gt Bustamante Lymphocytes/100 WBC (Bld) 20.2 % Critically low 20.5-60.0 [facility] Comment on above: Performed By: #### F T3, TSH, BMP, LIPID, LIVER #### [facility] [address] [place] [address] Dr. Gt Bustamante MANUAL DIFF REQ NO Normal [facility] Comment on above: Performed By: #### F T3, TSH, BMP, LIPID, LIVER #### [facility] [address] [place] [address] Dr. Gt Bustamante MCH (RBC) [Entitic mass] 29.5 pg Normal 25.9-34.0 [facility] Comment on above: Performed By: #### F T3, TSH, BMP, LIPID, LIVER #### [facility] [address] [place] [address] Dr. Gt Bustamante MCHC (RBC) [Mass/Vol] 32.5 g/dL Normal 29.9-35.2 [facility] Comment on above: Performed By: #### F T3, TSH, BMP, LIPID, LIVER #### [facility] [address] [place] [address] Dr. Gt Bustamante MCV (RBC) [Entitic vol] 90.8 fL Normal 80.0-94.0 [facility] Comment on above: Performed By: #### F T3, TSH, BMP, LIPID, LIVER #### [facility] [address] [place] [address] Dr. Gt Bustamante MONO # 0.9 103/ul Critically high 0.3-0.8 [facility] Comment on above: Performed By: #### F T3, TSH, BMP, LIPID, LIVER #### [facility] [address] [place] [address] Dr. Gt Bustamante Monocytes/100 WBC (Bld) 10.1 % Normal 1.7-12.0 [facility] Comment on above: Performed By: #### F T3, TSH, BMP, LIPID, LIVER #### [facility] [address] [place] [address] Dr. Gt Bustamante NEUT # 5.8 103/ul Normal 1.4-6.5 [facility] Comment on above: Performed By: #### F T3, TSH, BMP, LIPID, LIVER #### [facility] [address] [place] [address] Dr. Gt Bustamante Neutrophils/100 WBC (Bld) 66.8 % Normal 43.0-75.0 [facility] Comment on above: Performed By: #### F T3, TSH, BMP, LIPID, LIVER #### [facility] [address] [place] [address] Dr. Gt Bustamante Platelet mean volume (Bld) [Entitic vol] 9.3 fL Critically low 9.5-13.5 [facility] Comment on above: Performed By: #### F T3, TSH, BMP, LIPID, LIVER #### [facility] [address] [place] [address] Dr. Gt Bustamante PLT 357 103/ul Normal 150-450 [facility] Comment on above: Performed By: #### F T3, TSH, BMP, LIPID, LIVER #### [facility] [address] [place] [address] Dr. Gt Bustamante RBC 4.34 106/ul Critically low 4.70-6.10 [facility] Comment on above: Performed By: #### F T3, TSH, BMP, LIPID, LIVER #### [facility] [address] [place] [address] Dr. Gt Bustamante WBC 8.7 103/ul Normal 4.0-11.0 [facility] Comment on above: Performed By: #### F T3, TSH, BMP, LIPID, LIVER #### [facility] [address] [place] [address] [address] Gt Bustamante GLYCOHEMOGLOBIN A1Con 2021 ADA RECOMMENDATION SEE BELOW Normal [facility] Comment on above: Result Comment: ADA RECOMMENDED LIMIT 4.0 - 6.0 ADA THERAPEUTIC TARGET < 7.0 ACTION SUGGESTED > 7.0 Performed By: #### F T3, TSH, BMP, LIPID, LIVER #### [facility] [address] [place] [address] [address] Gt Bustamante Glucose [Mass/Vol] 151 mg/dL Normal [facility] Comment on above: Performed By: #### F T3, TSH, BMP, LIPID, LIVER #### [facility] [address] [place] [address] [address] Gt Bustamante HbA1c (Bld) [Mass fraction] 6.9 % Critically high 4.5-6.2 [facility] Comment on above: Performed By: #### F T3, TSH, BMP, LIPID, LIVER #### [facility] [address] [place] [address] [address] Gt Bustamante LIPID PROFILEon 04-28-2022 CHOL-HDL RATIO NORM SEE BELOW Normal [facility] Comment on above: Result Comment: 3.3 - 4.4 LOW RISK 4.4 - 7.1 AVERAGE RISK 7.1 - 11.0 MODERATE RISK >11.0 HIGH RISK Performed By: #### F T3, TSH, BMP, LIPID, LIVER #### [facility] [address] [place] [address] [address] Gt Bustamante Cholesterol [Mass/Vol] 113 mg/dL Normal <=200 [facility] Comment on above: Performed By: #### F T3, TSH, BMP, LIPID, LIVER #### [facility] [address] [place] [address] [address] Gt Bustamante Cholesterol in HDL [Mass/Vol] 39 mg/dL Critically low 40-60 [facility] Comment on above: Performed By: #### F T3, TSH, BMP, LIPID, LIVER #### [facility] [address] [place] [address] [address] Gt Bustamante Cholesterol in LDL [Mass/Vol] 48.8 mg/dL Normal [facility] Comment on above: Performed By: #### F T3, TSH, BMP, LIPID, LIVER #### [facility] [address] [place] [address] [address] Gt Bustamante Cholesterol.total/Cho lesterol in HDL [Mass ratio] 2.9 {ratio} Normal [facility] Comment on above: Performed By: #### F T3, TSH, BMP, LIPID, LIVER #### [facility] [address] [place] [address] [address] Gt Bustamante HDL NORMAL > or = 60 mg/dl - LOW CARDIOVASCULAR RISK <40 mg/dl - HIGH CARDIOVASCULAR RISK Normal [facility] Comment on above: Performed By: #### F T3, TSH, BMP, LIPID, LIVER #### [facility] [address] [place] [address] [address] Gt Bustamante LDL CALC NORMAL SEE BELOW Normal [facility] Comment on above: Result Comment: <100 mg/dl OPTIMAL 100 - 129 mg/dl NEAR OR ABOVE OPTIMAL 130 - 159 mg/dl BORDERLINE HIGH 160 - 189 mg/dl HIGH >190 mg/dl VERY HIGH Performed By: #### F T3, TSH, BMP, LIPID, LIVER #### [facility] [address] [place] [address] [address] Gt Bustamante Triglyceride [Mass/Vol] 126 mg/dL Normal <=150 [facility] Comment on above: Performed By: #### F T3, TSH, BMP, LIPID, LIVER #### [facility] [address] [place] [address] [address] Gt Bustamante VLDL CALC 25.2 mg/dL Normal [facility] Comment on above: Performed By: #### F T3, TSH, BMP, LIPID, LIVER #### [facility] [address] [place] [address] [address] Gt Bustamante LIVER PROFILEon 04-28-2022 Albumin [Mass/Vol] 3.4 g/dL Normal 3.4-5.0 [facility] Comment on above: Performed By: #### F T3, TSH, BMP, LIPID, LIVER #### [facility] [address] [place] [address] Dr. Gt Bustamante Albumin/Globulin [Mass ratio] 1.0 {ratio} Normal [facility] Comment on above: Performed By: #### F T3, TSH, BMP, LIPID, LIVER #### [facility] [address] [place] [address] Dr. Gt Bustamante ALP [Catalytic activity/Vol] 57 U/L Normal 46-116 [facility] Comment on above: Performed By: #### F T3, TSH, BMP, LIPID, LIVER #### [facility] [address] [place] [address] Dr. Gt Bustamante ALT [Catalytic activity/Vol] 27 U/L Normal 16-63 [facility] Comment on above: Performed By: #### F T3, TSH, BMP, LIPID, LIVER #### [facility] [address] [place] [address] Dr. Gt Bustamante AST [Catalytic activity/Vol] 14 U/L Critically low 15-37 [facility] Comment on above: Performed By: #### F T3, TSH, BMP, LIPID, LIVER #### [facility] [address] [place] [address] Dr. Gt Bustamante BILI, CONJUGATED 0.1 mg/dL Normal 0.0-0.2 [facility] Comment on above: Performed By: #### F T3, TSH, BMP, LIPID, LIVER #### [facility] [address] [place] [address] Dr. Gt Bustamante Bilirubin [Mass/Vol] 0.5 mg/dL Normal 0.2-1.0 [facility] Comment on above: Performed By: #### F T3, TSH, BMP, LIPID, LIVER #### [facility] [address] [place] [address] Dr. Gt Bustamante Globulin (S) [Mass/Vol] 3.4 g/dL Normal [facility] Comment on above: Performed By: #### F T3, TSH, BMP, LIPID, LIVER #### [facility] [address] [place] [address] Dr. Gt Bustamante Protein [Mass/Vol] 6.8 g/dL Normal 6.4-8.2 [facility] Comment on above: Performed By: #### F T3, TSH, BMP, LIPID, LIVER #### [facility] [address] [place] [address] Dr. Gt Bustamante PROF CHEM 8 (BAS METB)on Anion gap [Moles/Vol] 15.1 mmol/L Normal [facility] Comment on above: Performed By: #### F T3, TSH, BMP, LIPID, LIVER #### [facility] [address] [place] [address] Dr. Gt Bustamante Calcium [Mass/Vol] 9.0 mg/dL Normal 8.5-10.1 [facility] Comment on above: Performed By: #### F T3, TSH, BMP, LIPID, LIVER #### [facility] [address] [place] [address] Dr. Gt Bustamante Chloride [Moles/Vol] 102 mmol/L Normal 98-107 [facility] Comment on above: Performed By: #### F T3, TSH, BMP, LIPID, LIVER #### [facility] [address] [place] [address] Dr. Gt Bustamante CO2 [Moles/Vol] 28.2 mmol/L Normal 21.0-32.0 [facility] Comment on above: Performed By: #### F T3, TSH, BMP, LIPID, LIVER #### [facility] [address] [place] [address] Dr. Gt Bustamante Creatinine [Mass/Vol] 1.60 mg/dL Critically high 0.70-1.30 [facility] Comment on above: Performed By: #### F T3, TSH, BMP, LIPID, LIVER #### [facility] [address] [place] [address] Dr. Gt Bustaamnte EGFR-AF [place] 51 mL/min/1.73m2 Critically low >=60 [facility] Comment on above: Performed By: #### F T3, TSH, BMP, LIPID, LIVER #### [facility] [address] [place] [address] [address] Gt Bustamante EGFR-NON AF [place] 42 mL/min/1.73m2 Critically low >=60 [facility] Comment on above: Performed By: #### F T3, TSH, BMP, LIPID, LIVER #### [facility] [address] [place] [address] Dr. Gt Bustamante Glucose [Mass/Vol] 152 mg/dL Critically high 74-106 [facility] Comment on above: Performed By: #### F T3, TSH, BMP, LIPID, LIVER #### [facility] [address] [place] [address] Dr. Gt Bustamante Potassium [Moles/Vol] 4.3 mmol/L Normal 3.5-5.1 [facility] Comment on above: Performed By: #### F T3, TSH, BMP, LIPID, LIVER #### [facility] [address] [place] [address] Dr. Gt Bustamante Sodium [Moles/Vol] 141 mmol/L Normal 136-145 [facility] Comment on above: Performed By: #### F T3, TSH, BMP, LIPID, LIVER #### [facility] [address] [place] [address] Dr. Gt Bustamante Urea nitrogen [Mass/Vol] 20.0 mg/dL Critically high 7.0-18.0 [facility] Comment on above: Performed By: #### F T3, TSH, BMP, LIPID, LIVER #### [facility] [address] [place] [address] Dr. Gt Bustamante Urea nitrogen/Creatinine [Mass ratio] 12.5 mg/mg Normal [facility] Comment on above: Performed By: #### F T3, TSH, BMP, LIPID, LIVER #### [facility] [address] [place] [address] Dr. Gt Bustamante Vital Signs Date Time Vital Sign Value Performing Clinician Susan warner 09-12-2024 10:010500 Body height 179.1 cm Pk Alvarado MD Work Phone: [facility] 09-12-2024 10:01-0500 Body mass index (BMI) [Ratio] 46.96 kg/m2 Pk Alvarado MD Work Phone: [facility] 09-12-2024 10:01-0500 Body temperature 97.11 [degF] Pk Alvarado MD Work Phone: [facility] 09-12-2024 10:01-0500 Body weight 150.59 kg Pk Alvarado MD Work Phone: [facility] 09-12-2024 10:01-0500 Diastolic blood pressure 68 mm[Hg] Pk Alvarado MD Work Phone: [facility] 09-12-2024 10:01-0500 Heart rate 98 /min Pk Alvarado MD Work Phone: [facility] 09-12-2024 10:01-0500 Respiratory rate 18 /min Pk Alvarado MD Work Phone: [facility] 09-12-2024 10:01-0500 SaO2% (BldA) [Mass fraction] 90 % Pk Alvarado MD Work Phone: [facility] 09-12-2024 10:01-0500 Systolic blood pressure 136 mm[Hg] Pk Alvarado MD Work Phone: [facility] 08-29-2024 12:54-0500 Body height 179.1 cm Romulo Flo DO Work Phone: [facility] 08-29-2024 12:54-0500 Body mass index (BMI) [Ratio] 46.82 kg/m2 Romulo Flo DO Work Phone: [facility] 08-29-2024 12:54-0500 Body weight 150.14 kg Romulo Flo DO Work Phone: [facility] 08-29-2024 12:54-0500 Diastolic blood pressure 70 mm[Hg] Romulo Flo DO Work Phone: [facility] 08-29-2024 12:54-0500 Heart rate 67 /min Romulo Flo DO Work Phone: [facility] 08-29-2024 12:54-0500 SaO2% (BldA) [Mass fraction] 93 % Romulo Rossi DO Work Phone: [facility] 08-29-2024 12:54-0500 Systolic blood pressure 114 mm[Hg] Romulo Rossi DO Work Phone: [facility] Encounters Encounter Date Encounter Type Care Provider Facility Start: 09-12-2024 End: 09-12-2024 Bamboo flowsheet Pk Alvarado MD Work Phone: [facility] Start: 09-12-2024 End: 09-12-2024 Bamboo flowsheet Pk Alvarado MD Work Phone: [facility] Start: 09-12-2024 End: 09-12-2024 Patient encounter procedure Pk Alvarado MD Work Phone: [facility] Work Phone: Start: 09-12-2024 End: 09-12-2024 Postop follow up visit related to original px Pk Alvarado MD Work Phone: [facility] Comment on above: Medicare annual well ness visit, subsequent (Primary Dx); Type 2 diabetes mellitus with hyperglycemia, without long-term current use of insulin ([facility]) Start: 09-12-2024 End: 09-12-2024 ambulatory PK ALVARADO Not Available Start: 08-29-2024 End: 08-29-2024 Bamboo flowsheet Romulo Rossi DO Work Phone: [facility] Start: 08-29-2024 End: 08-29-2024 Bamboo flowsheet Romulo Rossi DO Work Phone: [facility] Start: 08-29-2024 End: 09-03-2024 Telephone encounter Apolinar Renee MA [facility] Start: 08-29-2024 End: 08-29-2024 Office outpatient visit 25 minutes Romulo Rossi DO Work Phone: [facility] Comment on above: STIVEN (obstructive sle ep apnea) (Primary Dx); Hypoxia; Class 3 severe obesity due to excess calories with serious comorbidity and body mass index (BMI) of 45.0 to 49.9 in adult ([facility]); Hypersomnia; Snoring Start: 08-29-2024 End: 08-29-2024 ambulatory ROMULO ROSSI Not Available Start: 05-28-2024 End: 05-28-2024 ambulatory PK ALVARADO Not Available Start: 11-30-2023 End: 11-30-2023 ambulatory PK ALVARADO Not Available Start: 12-30-2022 End: 12-31-[address] PK ALVARADO Facility:[facility] Start: 11-05-2022 End: 11-06-[address] PK ALVARADO Facility:[facility] Start: 04-28-2022 End: 04-29-[address] PK ALVARADO Facility:[facility] Procedures Date Procedure Procedure Detail Performing Clinician Start: 11-05-[address] PK VOSS Comment on above: Performed By: #### F T3, TSH, BMP, LIPID, LIVER #### [facility] [address] [place] [address] Dr. Gt Bustamante Plan of Treatment Date Care Activity Detail Author Start: 08-28-2026 Glaucoma screening Diabetes: R etinopathy Screening [facility] Start: 03-13-2025 End: 03-13-2025 Patient encounter procedure 03/13/2025 10:30 AM EDT Office Visit [facility] [address] [place] [address] Pk Alvarado MD [address] [place] [address] [facility] Start: 11-24-2024 Urine screening for protein Diabetes: Urine Protein Screening [facility] Start: 2024 Hemoglobin A1c measurement Diabetes: Hemoglobin A1C [facility] Start: 09-12-2024 End: 09-12-2025 Hemoglobin A1c/Hemoglobin.total in Blood Hemoglobin A1c Lab Routine Type 2 diabetes mellitus with hyperglycemia, without long-term current use of insulin ([facility]) Expected: 09/12/2024 (Approximate), Expires: 09/12/2025 [facility] Work Phone: Comment on above: Expected: 09/12/2024 (Approximate), Expires: 09/12/2025 Start: 09-12-2024 End: 09-12-2024 Patient encounter procedure [facility] Comment on above: Arrived Start: 08-29-2024 End: 08-29-2024 Patient encounter procedure 08/29/2024 1:00 PM EST Office Visit [facility] [address] [place] [id number] Romulo Rossi, [address] [place] [address] [address] [facility] Comment on above: Arrived Start: 06-03-2024 Influenza vaccination Influenza Vacc ine (#1) [facility] Start: 10-03-2017 Pneumococcal Vaccine : 65+ Years (2 of 2 - PCV) Pneumococcal Vaccine: 65+ Years (2 of 2 - PCV) [facility] Start: 1945 Medicare Annual Wellness (AWV) Medicare Annual Wellness (AWV) [facility] Immunizations Immunization Date Immunization Notes Care Provider Fa cili 06-27-2023 influenza virus vacc ine, unspecified formulation Romulo Rossi DO Work Phone: [facility] Payers Date Payer Category Payer Medicare (Managed Care) [facility] [id number] 2024 Unknown [id number] 2017 Private Health Insurance [employer] [id number] 2012 Medicare MEDICARE [id number] 1959 Medicare [id number] 1959 Private Health Insurance [facility] [id number] 1947 Unknown [id number] 1947 Unknown [id number] 1947 Unknown [id number] .2.593 1945 Unknown [id number] .[id number] 1945 Unknown [id number] .[id number] 1945 Unknown [id number] .[id number] 1945 Unknown [id number] .[id number] Social History Date Type Detail Facility Start: 11-30-[address] [facility] Start: 10-03-1964 End: 10-03-1967 History of tobacco use Current smoker [facility] Start: 10-03-1964 End: 10-03-1967 History of tobacco use Cigarette Smoker [facility] Start: 11-30-2023 End: 09-12-2024 Cigarettes smoked current (pack per day) - Reported 0.5 [facility] Start: 11-30-2023 Tobacco use and exposure Smoke less tobacco non-user [facility] Start: 05-28-2024 End: 09-12-2024 Tobacco use panel [facility] Start: 1945 Sex assigned at Not on file [facility] Medical Equipment Procedure Code Equipment Code Equipment Origin al Text Equipment Identifier Dates [id number] Start: 12-02-2023 History of Present illness Narrative 09-12-2024 Pk Alvarado MD - 09/12/2024 10:38 AM ESTPk Alvarado MD - 09/12/2024 10:00 AM EST Note Date & Type Note Facility 09-12-2024 History of Presen t illness Narrative Associated Problem(s): Medicare annual wellness visit, subsequent Reviewed labs. Discussed proper diet and regular aerobic exercise. Need aerobic exercise 5-6 days a week for 30 minutes at a time. Smaller portions and limit total calories. Tetanus every 10 years. Advised not to smoke. Images from the original note were not included. Subjective Patient ID: Gordon Sanchez is a 78 y.o. male who presents for Medicare Annual Wellness Visit Subsequent (wellness). Presents for medicare annual wellness visit. Patient feels well today. Weight up 5 pounds in past year. No regular exercise or activity. Not watching diet or trying to eat healthy. Not limiting snacking or portions. Reviewed labs. Review of Systems Constitutional: Negative for fatigue. Respiratory: Negative for cough, shortness of breath and wheezing. Cardiovascular: Negative for chest pain and palpitations. Gastrointestinal: Negative for abdominal pain, diarrhea, nausea and vomiting. Genitourinary: Negative for dysuria. Objective Physical Exam Constitutional: General: He is not in acute distress. Appearance: Normal appearance. HENT: Head: Normocephalic. Right Ear: Tympanic membrane and ear canal normal. Left Ear: Tympanic membrane and ear canal normal. Eyes: Extraocular Movements: Extraocular movements intact. Pupils: Pupils are equal, round, and reactive to light. Cardiovascular: Rate and Rhythm: Normal rate and regular rhythm. Heart sounds: No murmur heard. No friction rub. No gallop. Pulmonary: Breath sounds: Normal breath sounds. No wheezing, rhonchi or rales. Abdominal: General: Bowel sounds are normal. There is no distension. Palpations: Abdomen is soft. Tenderness: There is no abdominal tenderness. There is no guarding or rebound. Musculoskeletal: General: Normal range of motion. Left lower leg: No edema. Neurological: General: No focal deficit present. Mental Status: He is alert. Cranial Nerves: No cranial nerve deficit. Deep Tendon Reflexes: Reflexes normal. Assessment/Plan Problem List Items Addressed This Visit Type 2 diabetes mellitus with hyperglycemia, without long-term current use of insulin ([facility]) Relevant Orders Hemoglobin A1c Medicare annual wellness visit, subsequent - Primary Reviewed labs. Discussed proper diet and regular aerobic exercise. Need aerobic exercise 5-6 days a week for 30 minutes at a time. Smaller portions and limit total calories. Tetanus every 10 years. Advised not to smoke. documented in this encounter [facility] Telephone encounter Note 08-29-2024 Telephone Encounter - Apolinar Renee MA - 08/29/2024 3:06 PM EST Note Date & Type Note Facility 08-29-2024 Telephone encount er Note Patient calls, not on HIPAA, received verbal permission from patient to speak with and informed they need to update if she is going to be calling on his behalf. She states that she was told to call with a pharmacy to send pt order/scripts to. Gives the following information: [facility] Fax#: [phone] She also asks for his machine to be turned down to 18. [facility] Note 08-29-2024 Telephone Encounter - Apolinar Renee MA - 08/29/2024 3:06 PM EST Note Date & Type Note Facility 08-29-2024 Miscellaneous Notes Formattin g of this note might be different from the original. Patient calls, not on HIPAA, received verbal permission from patient to speak with and informed they need to update if she is going to be calling on his behalf. She states that she was told to call with a pharmacy to send pt order/scripts to. Gives the following information: [facility] Fax#: [phone] She also asks for his machine to be turned down to 18. documented in this encounter [facility] History of Present illness Narrative 08-29-2024 Romulo Rossi DO - 08/29/2024 1:00 PM EST Note Date & Type Note Facility 08-29-2024 History of Presen t illness Narrative Images from the original note were not included. Chief Complaint Patient presents with Sleep Apnea Kory Leyva is here today for a yearly follow up from the sleep clinic. He was last seen on 07/06/2023. He is wearing his machine nightly and when he naps. He does still feel the benefits of the machine. He does feel rested for the most part. He states his machine builds up a lot of pressure and will blow the mask off. He has to turn off the machine and turn it back on. This will occur about after 2 hours of wearing. He states he had to send his recent supplies back due to insurance not paying for it. He will need to get a new DME due to insurance switching to [facility]. He is going to contact his insurance company to find out who is in network. Past Medical History: Diagnosis Date Abnormal diffusion capacity determined by pulmonary function test Bilateral primary osteoarthritis of hip Bilateral primary osteoarthritis of knee Chronic sinusitis Dyslipidemia (CMS/HCC) Elevated PSA Gastro-esophageal reflux disease without esophagitis History of tobacco abuse Hypertension (CMS/HCC) Hypokalemia Hypothyroidism (CMS/HCC) Insomnia, persistent Obstructive sleep apnea Sinus tachycardia Stage 3a chronic kidney disease (CKD) ([facility]) Type 2 diabetes mellitus with diabetic polyneuropathy, without long-term current use of insulin ([facility]) Type 2 diabetes mellitus with hyperglycemia, without long-term current use of insulin ([facility]) Venous insufficiency Vitamin D deficiency Past Surgical History: Procedure Laterality Date KNEE SURGERY MYRINGOTOMY W/ TUBES NOSE SURGERY PLANTAR FASCIA RELEASE Right Isogard Plantar Fascia Release SKIN LESION EXCISION Family History Problem Relation Name Age of Onset Osteoporosis Mother Hypothyroidism Mother Diabetes Father Heart disease Father Hypertension Father Other (Varicose veins) Sister Social History Tobacco Use Smoking status: Former Current packs/day: 0.00 Average packs/day: 0.5 packs/day for 3.0 years (1.5 ttl pk-yrs) Types: Cigarettes Start date: 1964 Quit date: 1967 Years since quittin.9 Smokeless tobacco: Never Substance Use Topics Alcohol use: Not on file Allergies: Octacosanol General: No fever or chills HEENT: No nasal congestion or runny nose Pulmonary: No shortness of breath or cough Cardiovascular: No chest pain or palpitations GI: No nausea or vomiting : No dysuria or hematuria Musculoskeletal: No new aches or pains or muscle weakness Infectious: no recurrent fevers or infections Dermatologic: No rashes or skin lesions Neurologic: No new headaches or dizziness Vitals: 08/29/24 1254 BP: 114/70 Pulse: 67 SpO2: 93% Body mass index is 46.82 kg/m . weight: 331 lb Neurologic exam: General: obese, cooperative, pleasant Mental status: Awake, alert to person, place and time. Recent and remote memory are intact. Attention and concentration are normal. Fund of knowledge is appropriate for level of education. HEENT: NC/AT Cranial nerves: CN II: Visual blanco full to confrontation. No loss of vision CN III, IV, : pupils equal round and reactive to light. Extraocular movements intact. No ptosis present. CN V: Facial sensation is normal. CN VII: Full and symmetric facial movement. CN VIII: Hearing is normal CN IX and X: Palate elevates symmetrically. CN XI: Shoulder shrug is normal bilaterally. CN XII: Tongue is midline without atrophy or fasciculation. Speech: Clear and fluent no aphasia or dysarthria Pronator drift: Negative bilateral upper extremity Coordination: Intact, no signs of dysmetria Good finger to nose and rapid alternating movements Sensory: Sensation is intact to light, temperature and vibratory touch throughout four extremities. Motor: LUE 5/5 RUE 5/5 LLE 5/5 RLE 5/5 Tone: Physiologic, no tremor, bradykinesia or rigidity DTR: Bilateral Biceps 2/4 Bilateral BR 2/4 Bilateral Patellar 1/4 No spasticity Gait: Normal to casual gait, Wide-based due to the patient's size Romberg's Negative Review and summary of old records: Assessment/Plan Diagnoses and all orders for this visit: STIVEN (obstructive sleep apnea) Hypoxia Class 3 severe obesity due to excess calories with serious comorbidity and body mass index (BMI) of 45.0 to 49.9 in adult ([facility]) Hypersomnia Snoring 78-year-old male with a very severe obstructive sleep apnea leading to daytime hypersomnolence and snoring. Patient has significant hypoxia. This is controlled with the use of the CPAP machine and he is compliant with it. He is using the machine 100 percent of the time greater than 4 hours with an average nightly usage of 10 hours and 41 minutes and residual AHI of 1.3. It is building up pressure through the night and blowing off of his face. He has to turn the machine off and rewrap it. I suspect this is more when he is in the supine position and requiring more air. He is set to a max of 22 but he is only reaching about 20. He was offered to turn the high pressure off and down to maybe 18 but he does not want to and wants to leave it as it is. He is going to try some repositioning techniques keep out the supine position. He does have underlying obesity has not been aggressive with diet exercise and weight loss and was counseled he needs to. He had an [place] Sleepiness scale of 10 Plan Compliance download was reviewed he is compliant [place] Sleepiness scale is 10 Try repositioning techniques keep the patient now the supine position He will call in and let us know the supply company he needs to use as his insurance changed to [employer] and they no longer cover [facility] who he was using previously The patient was counseled on the need for aggressive diet, exercise, and weight loss. The patient was counseled on proper sleep hygiene and adequate hours of sleep. The patient was counseled on the risks of stroke, [place], and sudden with STIVEN, along with the need for compliance with the CPAP/BiPAP treatment. The diagnosis was all discussed with the patient. All questions were answered and they agreed with the treatment plan. Patient will call if there are any new issues or questions. Pt has been fully educated on their diagnosis, treatment options, follow up plan, and return instructions Return to clinic: 1 year documented in this encounter [facility] Evaluation note Note Date & Type Note Facility Evaluation note Diagnosis Type 2 diabetes mellitus with hyperglycemia, without long-term current use of insulin ([facility])- Primary Benign essential hypertension ([facility]) Essential hypertension, benign Gastroesophageal reflux disease without esophagitis Esophageal reflux STIVEN (obstructive sleep apnea) Obstructive sleep apnea (adult) (pediatric) Type 2 diabetes mellitus with polyneuropathy ([facility]) Type II or unspecified type diabetes mellitus with neurological manifestations, not stated as uncontrolled Venous insufficiency Unspecified venous (peripheral) insufficiency Morbid obesity due to excess calories ([facility]) Dermatitis Contact dermatitis and other eczema, due to unspecified cause Stage 3b chronic kidney disease (CKD) ([facility]) Type 2 diabetes mellitus with stage 3b chronic kidney disease, without long-term current use of insulin ([facility]) ([facility]) Type 2 diabetes mellitus with hyperglycemia, without long-term current use of insulin ([facility])- Primary Benign essential hypertension ([facility]) Essential hypertension, benign Venous insufficiency Unspecified venous (peripheral) insufficiency Type 2 diabetes mellitus with polyneuropathy ([facility]) Type II or unspecified type diabetes mellitus with neurological manifestations, not stated as uncontrolled STIVEN (obstructive sleep apnea) Obstructive sleep apnea (adult) (pediatric) Gastroesophageal reflux disease without esophagitis Esophageal reflux Morbid obesity due to excess calories ([facility]) Body mass index (BMI) 45.0-49.9, adult ([facility]) STIVEN (obstructive sleep apnea)- Primary Obstructive sleep apnea (adult) (pediatric) Hypoxia Hypoxemia Class 3 severe obesity due to excess calories with serious comorbidity and body mass index (BMI) of 45.0 to 49.9 in adult ([facility]) Hypersomnia Hypersomnia, unspecified Snoring Other dyspnea and respiratory abnormality documented in this encounter [facility] Evaluation note Note Date & Type Note Facility Evaluation note Diagnosis Type 2 diabetes mellitus with hyperglycemia, without long-term current use of insulin ([facility])- Primary Benign essential hypertension ([facility]) Essential hypertension, benign Gastroesophageal reflux disease without esophagitis Esophageal reflux STIVEN (obstructive sleep apnea) Obstructive sleep apnea (adult) (pediatric) Type 2 diabetes mellitus with polyneuropathy ([facility]) Type II or unspecified type diabetes mellitus with neurological manifestations, not stated as uncontrolled Venous insufficiency Unspecified venous (peripheral) insufficiency Morbid obesity due to excess calories ([facility]) Dermatitis Contact dermatitis and other eczema, due to unspecified cause Stage 3b chronic kidney disease (CKD) ([facility]) Type 2 diabetes mellitus with stage 3b chronic kidney disease, without long-term current use of insulin (HCC) ([facility]) Type 2 diabetes mellitus with hyperglycemia, without long-term current use of insulin ([facility])- Primary Benign essential hypertension ([facility]) Essential hypertension, benign Venous insufficiency Unspecified venous (peripheral) insufficiency Type 2 diabetes mellitus with polyneuropathy ([facility]) Type II or unspecified type diabetes mellitus with neurological manifestations, not stated as uncontrolled STIVEN (obstructive sleep apnea) Obstructive sleep apnea (adult) (pediatric) Gastroesophageal reflux disease without esophagitis Esophageal reflux Morbid obesity due to excess calories ([facility]) Body mass index (BMI) 45.0-49.9, adult ([facility]) STIVEN (obstructive sleep apnea)- Primary Obstructive sleep apnea (adult) (pediatric) documented in this encounter [facility] Evaluation note Note Date & Type Note Facility Evaluation note Diagnosis Type 2 diabetes mellitus with hyperglycemia, without long-term current use of insulin ([facility])- Primary Benign essential hypertension ([facility]) Essential hypertension, benign Gastroesophageal reflux disease without esophagitis Esophageal reflux STIVEN (obstructive sleep apnea) Obstructive sleep apnea (adult) (pediatric) Type 2 diabetes mellitus with polyneuropathy ([facility]) Type II or unspecified type diabetes mellitus with neurological manifestations, not stated as uncontrolled Venous insufficiency Unspecified venous (peripheral) insufficiency Morbid obesity due to excess calories ([facility]) Dermatitis Contact dermatitis and other eczema, due to unspecified cause Stage 3b chronic kidney disease (CKD) ([facility]) Type 2 diabetes mellitus with stage 3b chronic kidney disease, without long-term current use of insulin (HCC) ([facility]) Type 2 diabetes mellitus with hyperglycemia, without long-term current use of insulin ([facility])- Primary Benign essential hypertension ([facility]) Essential hypertension, benign Venous insufficiency Unspecified venous (peripheral) insufficiency Type 2 diabetes mellitus with polyneuropathy ([facility]) Type II or unspecified type diabetes mellitus with neurological manifestations, not stated as uncontrolled STIVEN (obstructive sleep apnea) Obstructive sleep apnea (adult) (pediatric) Gastroesophageal reflux disease without esophagitis Esophageal reflux Morbid obesity due to excess calories ([facility]) Body mass index (BMI) 45.0-49.9, adult ([facility]) Medicare annual wellness visit, subsequent- Primary Type 2 diabetes mellitus with hyperglycemia, without long-term current use of insulin ([facility]) documented in this encounter [facility] Summary Purpose Family History No Family History Records FoundNo Family History Records Found Advance Directives No Advanced Directives Records FoundNo Advanced Directives Records Found Additional Source Comments (unrecognized sect ion and content) No Status Records FoundNo Status Records Found INFORMATION SOURCE (unrecogn ized section and content) DATE CREATED AUTHOR 01/07/2023 [facility] DATE CREATED AUTHOR AUTHOR'S ORGANIZ ATION 09/15/2024 [facility] Care Teams (unrecognized sec tion and content) Bookbinder Chief Relationship Specialty Start Date End Date Pk Alvarado MD [address] [place] [id number] PCP - General Family Medicine 11/01/23 Pk Alvarado MD [address] [place] [id number] PCP - Devoted 06/03/24 Bookbinder Chief Relationship Specialty Start Date End Date Pk Alvarado MD [address] [place] [id number] PCP - General Family Medicine 11/01/23 Pk Alvarado MD [address] [place] [id number] PCP - Devoted 06/03/24 Bookbinder Chief Relationship Specialty Start Date End Date Pk Alvarado MD [address] [place] [id number] PCP - General Family Medicine 11/01/23 Pk Alvarado MD [address] [place] [phone] PCP - Devoted 06/03/24 Bookbinder Chief Relationship Specialty Start Date End Date Pk Alvarado MD [address] [place] [phone] PCP - General Family Medicine 11/01/23 Pk Alvarado MD [address] [place] [phone] PCP - Devoted 06/03/24 Reason for Visit (unrecogniz ed section and content) Reason Comments Sleep Apnea Reason Comments Medicare Annual Wellness Visit Subsequen t wellness FOR RECORDS PERTAINING TO PATIENTS WHO ARE [...] BE BASED ON THE PRIMARY CLINICAL RECORDS. [employer] provides no warranty or guarantee of the accuracy or completeness of information in this document.
[2024-09-17 11:25] LABS: Estimated Average Glucose 169 mg/dL; Glycohemoglobin A1C 7.5 % (4.5-6.2)
== END 2024-09-17 08:54 | disposition home or self-care (01) ==
LOC: LAB 08:56
PROVIDERS: PCP Family Medicine; Visit Provider Family Medicine
DX: E11.65 Type 2 diabetes mellitus with hyperglycemia (principal)
CPT/HCPCS: 36415; 83036

== ENCOUNTER 2025-03-13 11:22 | Outpatient (OUT) | payer MEDICARE, SELFPAY ==
--- OUTSIDE RECORDS SUMMARY | 2025-03-13 10:30 | XMS_ITS | Encounter Summary ---
Author Organization [facility] Address [address] [place] [address] Care Team Providers Care Console Operator Name Role Phone Pk Nice MD Primary Care Provider [phone] Reason for Visit * Reason Comments Follow-up 6mThinks he had alfred perez Encounter Details Date Type Department Care Team (Late st Contact Info) Description 03/13/2025 10:30 AM EDT [facility] [address] [place] [address] Pk Nice MD [address] [place] [address] Type 2 diabetes mellitus with hyperglycemia, without long-term current use of insulin ([facility]) (Primary Dx); Benign essential hypertension ([facility]); Venous insufficiency; Type 2 diabetes mellitus with polyneuropathy ([facility]/HCC); Gastroesophageal reflux disease without esophagitis; STIVEN (obstructive sleep apnea); Class 3 severe obesity due to excess calories with serious comorbidity and body mass index (BMI) of 45.0 to 49.9 in adult; Type 2 diabetes mellitus with diabetic chronic kidney disease (CMS/HCC); Chronic kidney disease, stage 3a (HCC) (CMS/HCC) Social History Tobacco Use Types Packs/Day Years Used Date Smoking Tobacco: Former Cigarettes 0.5 3 1 965 - 1968 Smokeless Tobacco: Never PHQ-2 Answer Date Recorded Patient Health Questionnaire-2 Score 0 09/12/2024 Sex and Gender Information Value Date Recorded Sex Assigned at Not on file Legal Sex Male 7:21 PM EDT Gender Identity Not on file Sexual Orientation Not on file documented as of this encounter Last Filed Vital Signs Vital Sign Reading Time Taken Comments Blood Pressure 140/80 03/13/2025 10:47 AM EDT Pulse 95 03/13/2025 10:47 AM EDT Temperature 36.3 C (97.3 F) 03/13/2025 10:47 AM EDT Respiratory Rate 22 03/13/2025 10:47 AM EDT Oxygen Saturation 91% 03/13/2025 10:47 AM EDT Inhaled Oxygen Concentration - - Weight 146 kg (321 lb) 03/13/2025 10:47 AM EDT Height 179.1 cm (5' 10.5 ) 03/13/2025 10:47 AM E DT Body Mass Index 45.41 03/13/2025 10:47 AM EDT documented in this encounter Progress Notes * Pk Nice MD - 03/13/2025 11:11 AM EDTAssociated Problem(s): Class 3 severe obesity due to excess calories with serious comorbidity and body mass index (BMI) of 45.0 to 49.9 in adult Weight loss indicated. * Pk Nice MD - 03/13/2025 11:11 AM EDTAssociated Problem(s): Venous insufficiency Edema controlled and elevate legs PRN. Continue lasix. * kP Nice MD - 03/13/2025 11:11 AM EDTAssociated Problem(s): Type 2 diabetes mellitus with polyneuropathy (CMS/HCC) Continued pain but tolerable and declines medication. * Pk Nice MD - 03/13/2025 11:11 AM EDTAssociated Problem(s): Type 2 diabetes mellitus with hyperglycemia, without long-term current use of insulin (CMS/HCC) Reports BS stable and due for A1C. Stick to ADA diet and limit carbs. * Pk Nice MD - 03/13/2025 11:10 AM EDTAssociated Problem(s): STIVEN (obstructive sleep apnea) Sleeping well with CPAP and use nightly. Patient is benefiting from PAP therapy. * Pk Nice MD - 03/13/2025 11:10 AM EDTAssociated Problem(s): Gastro- esophageal reflux Symptoms controlled with omeprazole and continue. * Pk Nice MD - 03/13/2025 11:10 AM EDTAssociated Problem(s): Benign essential hypertension (CMS/HCC) BP controlled and monitor PRN. * Pk Nice MD - 03/13/2025 10:30 AM EDT Images from the original note were not included. Subjective Patient ID: Gordon Sanchez is a 79 y.o. male who presents for Follow-up (6m/Thinks he had shingles). Follow up DM, HTN, neuropathy, edema, STIVEN, and GERD. Patient feels well today. Reports BS stable around 170-180. Did not have labs drawn and due for A1C. Not watching diet or trying to eat healthy. Not limiting carbs or portions. Denies signs of elevated BS such as polyuria, polyphagia or polydipsia. Checking BP PRN and typically controlled. BP normal today. Taking medication daily and toleratingwithout side effects. Neuropathy unchanged. Continues to have pain and burning in feet. Symptoms worse QHS. Edema controlled with medication. Mild swelling at end of day and if on feet a lot. Edema improved in am and with elevation. GERD controlled with omeprazole. Denies epigastric pain or burning and not waking up with symptoms. STIVEN controlled with CPAP. Using machine nightly for entire time asleep, typically 6-8 hours. Sleeping well and not waking up as much during night. Rested in am and not as tired during day. Review of Systems Constitutional: Negative for fatigue. [...] There is no guarding or rebound. Musculoskeletal: Left lower leg: No edema. Neurological: Mental Status: He is alert. Assessment/Plan Problem List Items Addressed This Visit Gastro-esophageal reflux Symptoms controlled with omeprazole and continue. Benign essential hypertension (CMS/HCC) BP controlled and monitor PRN. STIVEN (obstructive sleep apnea) Sleeping well with CPAP and use nightly. Patient is benefiting from PAP therapy. Type 2 diabetes mellitus with polyneuropathy (CMS/HCC) Continued pain but tolerable and declines medication. Type 2 diabetes mellitus with hyperglycemia, without long-term current use of insulin (CMS/HCC) - Primary Reports BS stable and due for A1C. Stick to ADA diet and limit carbs. Venous insufficiency Edema controlled and elevate legs PRN. Continue lasix. documented in this encounter Plan of Treatment Upcoming Encounters Date Type Department Care Team (Late st Contact Info) Description 09/18/2025 10:30 AM EST Office Visit [facility] [address] [place] [address] Pk Nice MD [address] [place] [address] documented as of this encounter Visit Diagnoses Diagnosis Type 2 diabetes mellitus with hyperglycemia, without long-term current use of insulin ([facility])- Primary Benign essential hypertension ([facility]) Essential hypertension, benign Venous insufficiency Unspecified venous (peripheral) insufficiency Type 2 diabetes mellitus with polyneuropathy ([facility]) Type II or unspecified type diabetes mellitus with neurological manifestations, not stated as uncontrolled Gastroesophageal reflux disease without esophagitis Esophageal reflux STIVEN (obstructive sleep apnea) Obstructive sleep apnea (adult) (pediatric) Class 3 severe obesity due to excess calories with serious comorbidity and body mass index (BMI) of 45.0 to 49.9 in adult Type 2 diabetes mellitus with diabetic chronic kidney disease ([facility]) Chronic kidney disease, stage 3a (HCC) ([facility]) documented in this encounter Additional Health Concerns Assessment Noted Time PHQ-9 Depression Total Score: 2 09/12/20 24 10:00 AM EST documented as of this encounter Care Teams Console Operator Relationship Specialty Start Date End Date Pk Nice MD [address] [place] [address] PCP - General Family Medicine 11/01/23 documented as of this encounter
--- OUTSIDE RECORDS SUMMARY | 2025-03-13 11:29 | XMS_ITS | Clinical Summary ---
Author Organization [employer] Address [id number] [address] [place] [address] Care Team Providers Care Administrative Asst Name Role Phone Pk Nice MD Primary Care Provider [phone] Allergies No known active allergies Medications atorvastatin (LIPITOR) 20 mg tablet Take 20 mg by mouth daily. Active metFORMIN (GLUCOPHAGE) 1000 mg tablet Take 1,000 mg by mouth 2 (two) times a day with meals. Active levothyroxine (SYNTHROID, LEVOTHROID) 25 MCG tablet Take 25 mcg by mouth daily. Active montelukast (SINGULAIR) 10 mg tablet Take 10 mg by mouth nightly. Active omeprazole (PriLOSEC) 20 mg capsule Take 20 mg by mouth daily. Active pioglitazone (ACTOS) 45 mg tablet Take 45 mg by mouth daily. Active Active Problems No known active problems Family History Medical History Relation Name Comments Esophageal cancer Brother Diabetes Father Colon cancer Sister Relation Name Status Comments Brother Father Sister Social History Tobacco Use Types Packs/Day Years Used Date Smoking Tobacco: Never Smokeless Tobacco: Never Alcohol Use Standard Drinks/Week Comments No 0 (1 standard drink = 0.6 oz pur e alcohol) Childcare Answer Date Recorded Childcare Unknown 03/14/2019 Employment Answer Date Recorded Employment Unknown 03/14/2019 Purpose - Life Answer Date Recorded Purpose and direction in life Unknown Sex and Gender Information Value Date Recorded Sex Assigned at Not on file Legal Sex Male 11:29 AM EDT Gender Identity Not on file Sexual Orientation Not on file Last Filed Vital Signs Vital Sign Reading Time Taken Comments Blood Pressure 130/82 04/14/2018 9:16 AM EDT Pulse - - Temperature - - Respiratory Rate - - Oxygen Saturation - - Inhaled Oxygen Concentration - - Weight 129.3 kg (285 lb) 04/14/2018 9:16 AM EDT Height 179.1 cm (5' 10.5 ) 04/14/2018 9:16 AM ED T Body Mass Index 40.32 04/14/2018 9:16 AM EDT Plan of Treatment Health Maintenance Due Date Last Done Comments Depression Screening 1959 Tobacco Screening 1957 DTaP,Tdap and Td Vaccines (1 - Tdap) 1966 Zoster (Shingles) Vaccine (1 of 2) 1997 Fall Risk Screening 2012 Influenza Vaccine 06/03/2025 Medical Devices Not on file Insurance MEDICARE AET Care Teams Administrative Asst Relationship Specialty Start Date End Date Pk Nice MD PCP - General Family Medicine 02/01/18
--- OUTSIDE RECORDS SUMMARY | 2025-03-13 11:29 | XMS_ITS | Encounter Summary ---
Author Organization [facility] Address [address] [facility] [place] [address] Care Team Providers Care Project Development Coordinator Name Role Phone Pk Nice MD Primary Care Provider [phone] Pk Nice MD Primary Care Provider [phone] Pk Nice MD Unavailable Encounter Details Date Type Department Care Team (Late Contact Info) Description 09/07/2023 Orders Only [facility] [address] [place] [address] Pk Nice MD [address] [place] [address] Essential (primary) hypertension (CMS/HCC) Social History Tobacco Use Types Packs/Day Years Used Date Smoking Tobacco: Never Assessed Sex and Gender Information Value Date Recorded Sex Assigned at Not on file Legal Sex Male 7:21 PM EDT Gender Identity Not on file Sexual Orientation Not on file documented as of this encounter Plan of Treatment Upcoming Encounters Date Type Department Care Team (Late st Contact Info) Description 09/18/2025 10:30 AM EST Office Visit [facility] [address] [place] [phone] Pk Nice MD [address] [place] [phone] documented as of this encounter Visit Diagnoses Diagnosis Essential (primary) hypertension (CMS/HCC) Unspecified essential hypertension documented in this encounter Care Teams Project Development Coordinator Relationship Specialty Start Date End Date Pk Nice MD PCP - General Family Medicine 10/03/22 10/31/23 Pk Nice MD [address] [place] [address] PCP - General Family Medicine 11/01/23 Pk Nice MD [address] [place] [address] PCP - Devoted 06/03/24 10/02/24 documented as of this encounter
--- OUTSIDE RECORDS SUMMARY | 2025-03-13 11:29 | XMS_ITS | Encounter Summary ---
Author Organization [facility] Address [address] [place] [address] Care Team Providers Care Health Services Administrator Name Role Phone Pk Nice MD Primary Care Provider [phone] Encounter Details Date Type Department Care Team (Late Contact Info) Description 02/08/2025 Telephone [facility] [address] [place] [address] Pk Nice MD [address] [place] [address] Social History Tobacco Use Types Packs/Day Years Used Date Smoking Tobacco: Former Cigarettes 0.5 3 1 965 - 8181 Smokeless Tobacco: Never PHQ-2 Answer Date Recorded Patient Health Questionnaire-2 Score 0 09/12/2024 Sex and Gender Information Value Date Recorded Sex Assigned at Not on file Legal Sex Male 7:21 PM EDT Gender Identity Not on file Sexual Orientation Not on file documented as of this encounter Miscellaneous Notes * Telephone Encounter - Kaylee Sesay - 02/08/2025 9:47 AM EDT Patients called and stated the patient has had shingles for 2 weeks, it is going away but he'shaving a lot of pain. The pharmacy told her he needs an antibiotic. asked if you could call something in. an documented in this encounter Plan of Treatment Upcoming Encounters Date Type Department Care Team (Late Contact Info) Description 09/18/2025 10:30 AM EST Office Visit [facility] [address] [place] [address] Pk Nice MD [address] [place] [address] documented as of this encounter Visit Diagnoses Not on filedocumented in this encounter Additional Health Concerns Assessment Noted Time PHQ-9 Depression Total Score: 2 09/12/20 24 10:00 AM EST documented as of this encounter Care Teams Health Services Administrator Relationship Specialty Start Date End Date Pk Nice MD [address] [place] [phone] PCP - General Family Medicine 11/01/23 documented as of this encounter
--- OUTSIDE RECORDS SUMMARY | 2025-03-13 11:29 | XMS_ITS | Encounter Summary ---
Author Organization [facility] Address [address] [facility] [place] [address] Care Team Providers Care Staff Development Educator Name Role Phone Pk Nice MD Primary Care Provider [phone] Reason for Visit * Reason Comments Med Refill Encounter Details Date Type Department Care Team (Late st Contact Info) Description 02/28/2025 Refill [facility] [address] [place] [address] Pk Nice MD [address] [place] [address] Primary insomnia Social History Tobacco Use Types Packs/Day Years Used Date Smoking Tobacco: Former Cigarettes 0.5 3 1 965 - 1967 Smokeless Tobacco: Never PHQ-2 Answer Date Recorded Patient Health Questionnaire-2 Score 0 09/12/2024 Sex and Gender Information Value Date Recorded Sex Assigned at Not on file Legal Sex Male 7:21 PM EDT Gender Identity Not on file Sexual Orientation Not on file documented as of this encounter Miscellaneous Notes * Telephone Encounter - ALDAIR PEDERSON - 02/28/2025 9:16 AM EDT MEDICATION SENT TO [facility] documented in this encounter Plan of Treatment Upcoming Encounters Date Type Department Care Team (Late st Contact Info) Description 09/18/2025 10:30 AM EST [facility] [address] [place] [address] Pk Nice MD [address] [place] [address] documented as of this encounter Visit Diagnoses Diagnosis Primary insomnia Persistent disorder of initiating or maintaining sleep documented in this encounter Additional Health Concerns Assessment Noted Time PHQ-9 Depression Total Score: 2 09/12/20 24 10:00 AM EST documented as of this encounter Care Teams Staff Development Educator Relationship Specialty Start Date End Date Pk Nice MD [address] [place] [address] PCP - General Family Medicine 11/01/23 documented as of this encounter
--- OUTSIDE RECORDS SUMMARY | 2025-03-13 11:29 | XMS_ITS | Encounter Summary ---
Author Organization [facility] Address [address] [facility] [place] [address] Care Team Providers Care Electrician Supervisor Substation Name Role Phone Pk Nice MD Primary Care Provider [phone] Reason for Visit * Reason Comments Med Refill Encounter Details Date Type Department Care Team (Late st Contact Info) Description 02/28/2025 Refill [facility] [address] [place] [address] Pk Nice MD [address] [place] [phone] Venous insufficiency (chronic) (peripheral) Social History Tobacco Use Types Packs/Day Years [...] Telephone Encounter - ALDAIR PEDERSON - 02/28/2025 10:47 AM EDT MEDICATION [facility]ENT [facility] documented in this encounter Plan of Treatment Upcoming Encounters Date Type Department Care Team (Late Contact Info) Description 09/18/2025 10:30 AM EST Office Visit [facility] [address] [place] [address] Pk Nice MD [address] [place] [address] documented as of this encounter Visit Diagnoses Diagnosis Venous insufficiency (chronic) (peripheral) Unspecified venous (peripheral) insufficiency documented in this encounter Additional Health Concerns Assessment Noted Time PHQ-9 Depression Total Score: 2 09/12/20 24 10:00 AM EST documented as of this encounter Care Teams Electrician Supervisor Substation Relationship Specialty Start Date End Date Pk Nice MD [address] [place] [address] PCP - General Family Medicine 11/01/23 documented as of this encounter
--- OUTSIDE RECORDS SUMMARY | 2025-03-13 11:29 | XMS_ITS | Encounter Summary ---
Author Organization [facility] Address [address] [place] [address] Care Team Providers Care Hardware Press Operator Name Role Phone Pk Nice MD Primary Care Provider [phone] Encounter Details Date Type Department Care Team (Late st Contact Info) Description 03/07/2025 Telephone [facility] [address] [place] [phone] Pk Nice MD [address] [place] [phone] Social History Tobacco Use Types Packs/Day Years Used Date Smoking Tobacco: Former Cigarettes 0.5 3 1 595 - 1745 Smokeless Tobacco: Never PHQ-2 Answer Date Recorded Patient Health Questionnaire-2 Score 0 09/12/2024 Sex and Gender Information Value Date Recorded Sex Assigned at Not on file Legal Sex Male 7:21 PM EDT Gender Identity Not on file Sexual Orientation Not on file documented as of this encounter Miscellaneous Notes * Telephone Encounter - Pk Nice MD - 03/07/2025 5:18 PM EDT Lab order in chart. * Telephone Encounter - ALDAIR PEDERSON - 03/07/2025 1:09 PM EDT Patient called to see if there was labs you wanted done prior to visit, if there are [facility] documented in this encounter Plan of Treatment Upcoming Encounters Date Type Department Care Team (Late st Contact Info) Description 09/18/2025 10:30 AM EST Office Visit [facility] [address] [place] [address] Pk Nice MD [address] [place] [address] Scheduled Orders Name Type Priority Associated Diagnoses Orde r Schedule Microalbumin / creatinine, urine ratio Lab Routine Type 2 diabetes mellitus with hyperglycemia, without long-term current use of insulin ([facility]) Expected: 03/07/2025 (Approximate), Expires: 03/07/2026 Hemoglobin A1c Lab Routine Type 2 diabetes mellitus with hyperglycemia, without long-term current use of insulin (CMS/HCC) Expected: 03/07/2025 (Approximate), Expires: 03/07/2026 Basic metabolic panel Lab Routine Encounter for long-term current use of medication Expected: 03/07/2025 (Approximate), Expires: 03/07/2026 CBC and differential Lab Routine Encounter for long-term current use of medication Expected: 03/07/2025 (Approximate), Expires: 03/07/2026 Hepatic function panel Lab Routine Encounter for long-term current use of medication Expected: 03/07/2025 (Approximate), Expires: 03/07/2026 Lipid panel Lab Routine Dyslipidemia ([facility]/HCC) Expected: 03/07/2025 (Approximate), Expires: 03/07/2026 TSH Lab Routine Adult hypothyroidism (CMS/HCC) Expected: 03/07/2025 (Approximate), Expires: 03/07/2026 T4, free Lab Routine Adult hypothyroidism (CMS/HCC) Expected: 03/07/2025 (Approximate), Expires: 03/07/2026 documented as of this encounter Visit Diagnoses Diagnosis Adult hypothyroidism (CMS/HCC)- Primary Unspecified hypothyroidism Dyslipidemia (CMS/HCC) Other and unspecified hyperlipidemia Encounter for long-term current use of medication Type 2 diabetes mellitus with hyperglycemia, without long-term current use of insulin (CMS/HCC) documented in this encounter Additional Health Concerns Assessment Noted Time PHQ-9 Depression Total Score: 2 09/12/20 24 10:00 AM EST documented as of this encounter Care Teams Hardware Press Operator Relationship Specialty Start Date End Date Pk Nice MD [address] [place] [phone] PCP - General Family Medicine 11/01/23 documented as of this encounter
--- OUTSIDE RECORDS SUMMARY | 2025-03-13 11:29 | XMS_ITS | Clinical Summary ---
Author Organization [facility] Address [address] [place] [address] Care Team Providers Care Floor Finisher Helper Name Role Phone Pk Nice MD Primary Care Provider [phone] Allergies Active Allergy Reactions Criticality Noted Date Comments Octacosanol Unknown 08/29/2024 Medications Lancets 28G misc Act kat potassium chloride CR (Klor-Con M20) 20 MEQ ER tablet Take 20 mEq by mouth in the morning and 20 mEq before bedtime. Do not crush or chew.. Active cholecalciferol (Vitamin D-3) 25 MCG (1000 UT) tablet Take 1,000 Units by mouth in the morning. Active Blood Glucose Monitoring Suppl ([employer] True Metrix Glucose Meter) w/Device kitIndications:Ty pe 2 diabetes mellitus with hyperglycemia, without long-term current use of insulin ([facility]) 1 each Daily 1 kit 12/02/19 24 Active glucose blood ([employer] True Metrix Glucose Strips) test stripIndications: Type 2 diabetes mellitus with hyperglycemia, without long-term current use of insulin ([facility]) 1 each by Other route Daily 50 each 11 12/02/19 24 Active montelukast (Singulair) 10 MG tabletIndications :Allergic rhinitis due to pollen TAKE 1 TABLET BY MOUTH AT BEDTIME 90 tablet 3 05/25/20 24 Active omeprazole (PriLOSEC) [address] capsuleIndication s:Gastroesophagea l reflux disease without esophagitis Take 1 capsule (20 mg) by mouth Daily 90 capsule 3 05/28/20 24 Active pioglitazone (Actos) 45 MG tabletIndications :Type 2 diabetes mellitus with hyperglycemia, without long-term current use of insulin ([facility]) Take 1 tablet (45 mg) by mouth Daily 90 tablet 3 05/28/20 24 Active atorvastatin (Lipitor) 20 MG tabletIndications :Type 2 diabetes mellitus with hyperglycemia, without long-term current use of insulin (CMS/HCC) Take 1 tablet (20 mg) by mouth at bedtime 90 tablet 3 05/28/20 24 Active losartan (Cozaar) 100 MG tabletIndications :Benign essential hypertension (CMS/HCC) Take 1 tablet (100 mg) by mouth Daily 90 tablet 3 05/28/20 24 Active glipiZIDE (Glucotrol) 5 MG tabletIndications :Type 2 diabetes mellitus with hyperglycemia, without long-term current use of insulin (CMS/HCC) Take 1 tablet (5 mg) by mouth Daily 90 tablet 3 05/28/20 24 Active triamcinolone (Kenalog) 0.5 % creamIndications: Dermatitis APPLY TO THE AFFECTED AREA(S) topically THREE TIMES DAILY 60 g 1 08/01/20 24 Active potassium chloride CR (K-Tab) 20 MEQ ER tabletIndications :Venous insufficiency (chronic) (peripheral) TAKE 1 TABLET BY MOUTH TWICE DAILY 180 tablet 3 09/03/20 24 Active levothyroxine (Synthroid, Levoxyl) 100 MCG tabletIndications :Primary hypothyroidism (CMS/HCC) TAKE 1 TABLET BY MOUTH IN THE MORNING 90 tablet 3 09/03/20 24 Active amLODIPine (Norvasc) 10 MG tabletIndications :Essential (primary) hypertension (CMS/HCC) TAKE 1 TABLET BY MOUTH DAILY 90 tablet 3 09/03/20 24 Active traZODone (Desyrel) 100 MG tabletIndications :Primary insomnia TAKE 1 TABLET BY MOUTH AT BEDTIME 30 tablet 3 02/29/20 25 Active furosemide (Lasix) 40 MG tabletIndications :Venous insufficiency (chronic) (peripheral) TAKE 1 TABLET BY MOUTH TWICE DAILY 60 tablet 3 02/29/20 25 Active furosemide (Lasix) 40 MG tabletIndications :Venous insufficiency (chronic) (peripheral) TAKE 1 TABLET BY MOUTH TWICE DAILY 60 tablet 3 12/04/19 25 025 Discontinued traZODone (Desyrel) 100 MG tabletIndications :Primary insomnia TAKE 1 TABLET BY MOUTH ONCE DAILY AT BEDTIME 30 tablet 3 12/04/19 25 025 Discontinued Active Problems Problem Noted Date Diagnosed Date Medicare annual wellness visit, subsequent 09/12 Assessment & Plan (09/12/2024 10:38 AM EST): Reviewed labs. Discussed proper diet and regular aerobic exercise. Need aerobic exercise 5-6 days a week for 30 minutes at a time. Smaller portions and limit total calories. Tetanus every 10 years. Advised not to smoke. Screening PSA (prostate specific antigen) 2023 Venous insufficiency 11/30/2023 Assessment & Plan (03/13/2025 11:11 AM EDT): Edema controlled and elevate legs PRN. Continue lasix. Assessment & Plan (05/28/2024 12:13 PM EDT): Edema worse and need to limit sodium. Elevate legs PRN. Continue lasix. Assessment & Plan (11/30/2023 11:57 AM EST): Edema stable and continue lasix. Elevate legs PRN. Vitamin D deficiency 11/30/2023 Gastro-esophageal reflux 11/22/2023 Assessment & Plan (03/13/2025 11:10 AM EDT): Symptoms controlled with omeprazole and continue. Assessment & Plan (05/28/2024 12:12 PM EDT): Symptoms controlled with omeprazole and continue. Assessment & Plan (11/30/2023 11:56 AM EST): Symptoms controlled with omeprazole and continue. Benign essential hypertension 11/22/2023 Assessment & Plan (03/13/2025 11:10 AM EDT): BP controlled and monitor PRN. Assessment & Plan (05/28/2024 12:12 PM EDT): BP controlled and monitor PRN. Assessment & Plan (11/30/2023 11:55 AM EST): BP controlled and monitor PRN. Bilateral primary osteoarthritis of hip 11/22/19 24 Bilateral primary osteoarthritis of knee 024 Chronic pansinusitis 11/22/2023 Dyslipidemia 11/22/2023 Encounter for long-term current use of medicatio n 11/22/2023 Adult hypothyroidism 11/22/2023 Primary insomnia 11/22/2023 Class 3 severe obesity due t o excess calories with serious comorbidity and body mass index (BMI) of 45.0 to 49.9 in adult 11/22/2023 Assessment & Plan (03/13/2025 11:11 AM EDT): Weight loss indicated. Assessment & Plan (05/28/2024 12:16 PM EDT): Weight loss indicated. STIVEN (obstructive sleep apnea) 11/22/2023 Assessment & Plan (03/13/2025 11:10 AM EDT): Sleeping well with CPAP and use nightly. Patient is benefiting from PAP therapy. Assessment & Plan (05/28/2024 12:12 PM EDT): Sleeping well with CPAP and use nightly. Patient is benefiting from PAP therapy. Assessment & Plan (11/30/2023 11:56 AM EST): Sleeping well with CPAP and use nightly. Patient is benefiting from PAP therapy. Stage 3b chronic kidney disease (CKD) 11/22/2023 Type 2 diabetes mellitus with polyneuropathy Assessment & Plan (03/13/2025 11:11 AM EDT): Continued pain but tolerable and declines medication. Assessment & Plan (05/28/2024 12:13 PM EDT): Continued pain but tolerable and declines medication. Assessment & Plan (11/30/2023 11:57 AM EST): Continued pain but tolerable and declines medication. Will complete form for diabetic shoes. Type 2 diabetes mellitus wit h hyperglycemia, without long-term current use of insulin 11/22/2023 Assessment & Plan (03/13/2025 11:11 AM EDT): Reports BS stable and due for A1C. Stick to ADA diet and limit carbs. Assessment & Plan (05/28/2024 12:13 PM EDT): BS controlled and A1C 6.8. Stick to ADA diet and limit carbs. Assessment & Plan (11/30/2023 11:56 AM EST): BS controlled and A1C 6.3. Side effects from metformin and stop. Monitor BS and if elevated will increase glipizide. Resolved Problems Problem Noted Date Diagnosed Date Resolved Date Dermatitis 11/30/2023 03/13/2025 Assessment & Plan (11/30/2023 11:57 AM EST): Recurrent rash and start steroid cream. Encounters Date Type Department Care Team Description 03/13/2025 10:30 AM EDT Office Visit [facility] [address] [place] [address] Pk Nice MD Type 2 diabetes mellitus with hyperglycemia, without long-term current use of insulin ([facility]) (Primary Dx); Benign essential hypertension ([facility]); Venous insufficiency; Type 2 diabetes mellitus with polyneuropathy ([facility]); Gastroesophageal reflux disease without esophagitis; STIVEN (obstructive sleep apnea); Class 3 severe obesity due to excess calories with serious comorbidity and body mass index (BMI) of 45.0 to 49.9 in adult; Type 2 diabetes mellitus with diabetic chronic kidney disease ([facility]); Chronic kidney disease, stage 3a (HCC) ([facility]/HCC) 03/13/2025 Bamboo flowsheet [facility] [address] [place] [id number] Pk Nice MD 03/07/2025 Telephone [facility] [address] [place] [address] Pk Nice MD 02/28/2025 Refill [facility] [address] [place] [address] Pk Nice MD Venous insufficiency (chronic) (peripheral) 02/28/2025 Refill [facility] [address] [place] [address] Pk Nice MD Primary insomnia 02/08/2025 Telephone [facility] [address] [place] [address] Pk Nice MD from Last 3 Months Family History Medical History Relation Name Comments Diabetes Father Heart disease Father Hypertension Father Hypothyroidism Mother Osteoporosis Mother Varicose veins Sister Relation Name Status Comments Father Mother Sister Social History Tobacco Use Types Packs/Day Years Used Date Smoking Tobacco: Former Cigarettes 0.5 3 1 965 - 1967 Smokeless Tobacco: Never Tobacco Cessation:Counseling Given: Not Answered PHQ-2 Answer Date Recorded Patient Health Questionnaire-2 [...] Mass Index 45.41 03/13/2025 10:47 AM EDT Plan of Treatment Upcoming Encounters Date Type Department Care Team (Late st Contact Info) Description 09/18/2025 10:30 AM EST Office Visit [facility] [address] [place] [address] Pk Nice MD [address] [place] [phone] Health Maintenance Due Date Last Done Comments Pneumococcal Vaccine: 65+ Ye ars (2 of 2 - PCV) 10/03/2017 10/03/2016 Diabetes: Hemoglobin A1C 2024 05/18/2024 Diabetes: Urine Protein Screening 11/24/2024 024 Influenza Vaccine (Season Ended) 2025 06/27/2023, 08/03/2022, 07/31/2021, Additional history exists Medicare Annual Wellness (AWV) 09/12/2025 09/12/2024 Diabetes: Retinopathy Screening 08/28/2026 , 08/08/2023 [place] [address] [employer] Care Teams Floor Finisher Helper Relationship Specialty Start Date End Date Pk Nice MD [address] [place] [address] PCP - General Family Medicine 11/01/23
[2025-03-13 12:07] LABS: Basophils Absolute Auto 0.1 10^3/uL (0.0-0.1); Basophils Percent Auto 1.1 % (0.2-2.0); Eosinophils Percent Auto 0.1 % (0.9-7.0); Hematocrit 40.1 % (42.0-54.0); Hemoglobin 13.3 g/dL (14.0-18.0); Immature Granulocytes Abs Auto 0.14 10^3/uL (0.00-0.03); Immature Granulocytes Pct Auto 1.4 % (0.0-0.5); Lymphocytes Absolute Auto 1.8 10^3/uL (1.2-3.8); Lymphocytes Percent Auto 18.1 % (20.5-60.0); Mean Corpuscular HGB Conc 33.2 g/dL (29.9-35.2); Mean Corpuscular Hemoglobin 29.7 pg (25.9-34.0); Mean Corpuscular Volume 89.5 fL (80.0-94.0); Monocytes Absolute Auto 0.8 10^3/uL (0.3-0.8); Monocytes Percent Auto 8.2 % (1.7-12.0); Neutrophils Percent Auto 71.1 % (43.0-75.0); Platelet Count 357 10^3/uL (150-450); Red Blood Count 4.48 10^6/uL (4.70-6.10); Red Cell Distribution Width 14.2 % (11.0-15.0); White Blood Count 9.8 10^3/uL (4.0-11.0)
[2025-03-13 12:29] LABS: Alanine Aminotransferase 31 U/L (16-63); Albumin Globulin Ratio 0.8; Albumin Level 3.2 g/dL (3.4-5.0); Alkaline Phosphatase 84 U/L (46-116); Anion Gap 16.1; Aspartate Amino Transferase 13 U/L (15-37); BUN Creatinine Ratio 17.8; Bilirubin Direct 0.1 mg/dL (0.0-0.2); Bilirubin Total 0.4 mg/dL (0.2-1.0); Calcium 9.5 mg/dL (8.5-10.1); Carbon Dioxide 24.8 mmol/L (21.0-32.0); Chloride 101 mmol/L (98-107); Cholesterol 131 mg/dL (<=200); Estimated GFR (African America 52 (>=60 mL/min/1.73m^2); Estimated GFR (Non-African Ame 43 (>=60 mL/min/1.73m^2); Globulin 3.8 g/dL; Glucose 202 mg/dL (74-106); HDL Cholesterol 44 mg/dL (40-60); Potassium 3.9 mmol/L (3.5-5.1); Sodium 138 mmol/L (136-145); Triglycerides 134 mg/dL (<=150); VLDL CHOLESTEROL 26.8 mg/dL
[2025-03-13 12:30] LABS: LDL Cholesterol Calculated 60.2 mg/dL; Thyroid Stimulating Hormone 2.518 uIU/mL (0.358-3.740)
[2025-03-13 12:34] LABS: Microalbumin Urine Random <1.3 mg/dL (<=30.0)
[2025-03-13 12:49] LABS: Free T4 1.31 ng/dL (0.76-1.46)
[2025-03-13 12:50] LABS: Estimated Average Glucose 180 mg/dL; Glycohemoglobin A1C 7.9 % (4.5-6.2)
== END 2025-03-13 11:23 | disposition home or self-care (01) ==
LOC: LAB 11:27
PROVIDERS: PCP Family Medicine; Visit Provider Family Medicine
DX: E03.9 Hypothyroidism, unspecified (principal); E11.65 Type 2 diabetes mellitus with hyperglycemia; Z79.899 Other long term (current) drug therapy; E78.5 Hyperlipidemia, unspecified
CPT/HCPCS: 36415; 80048; 80061; 80076; 82043; 82570; 83036; 84439; 84443; 85025

== ENCOUNTER 2025-09-17 07:36 | Outpatient (OUT) | payer MEDICARE, SELFPAY ==
--- OUTSIDE RECORDS SUMMARY | 2025-09-17 07:39 | XMS_ITS | Clinical Summary ---
Author Organization [employer] Address [facility] [id number] [address] [place] [address] Care Team Providers Care Sales Support Assistant Name Role Phone Pk Nice MD Primary Care Provider [phone] Allergies No known active allergies Medications MedicationSigDispense QuantityRefillsLast FilledStart DateEnd DateStatus atorvastatin (LIPITOR) 20 mg tablet Take 20 mg by mouth daily.Active metFORMIN (GLUCOPHAGE) 1000 mg tablet Take 1,000 mg by mouth 2 (two) times a day with meals.Active levothyroxine (SYNTHROID, LEVOTHROID) 25 MCG tablet Take 25 mcg by mouth daily.Active montelukast (SINGULAIR) 10 mg tablet Take 10 mg by mouth nightly.Active omeprazole (PriLOSEC) 20 mg capsule Take 20 mg by mouth daily.Active pioglitazone (ACTOS) 45 mg tablet Take 45 mg by mouth daily.Active Active Problems No known active problems Family History Medical HistoryRelationNameCommentsEsophageal cancerBrotherDiabetesFatherColon cancerSisterRelationNameStatusCommentsBrotherFatherSister Social History Tobacco UseTypesPacks/DayYears UsedDateSmoking Tobacco: NeverSmokeless Tobacco: NeverAlcohol UseStandard Drinks/WeekCommentsNo0 (1 standard drink = 0.6 oz pure alcohol)ChildcareAnswerDate TglxwrvtVgoemrwtaNivwnqx69/12/2019EmploymentAnswer Date UqzbhqzvDvbyzikptwFbrwzbb93/12/2019Purpose - LifeAnswerDate RecordedPurpose and direction in odymAkmrfei91/11/2021Sex and Gender InformationValueDate RecordedSex Assigned at BirthNot on fileLegal MuxSdaf3106/05/2015 11:29 AM EDT Gender IdentityNot on fileSexual OrientationNot on file Last Filed Vital Signs Vital SignReadingTime TakenCommentsBlood Wlkscsqo829/8207 9:16 AM EDT Pulse--Temperature--Respiratory Rate--Oxygen Saturation--Inhaled Oxygen Concentration--Fdaqwb872.3 kg (285 lb)04/14/2018 9:16 AM XXHImzpvs672.1 cm (5' 10.5 )04/14/2018 9:16 AM EDTBody Mass Index40.32004/14/2018 9:16 AM EDT Plan of Treatment Health MaintenanceDue DateLast DoneCommentsDepression Qcqfwyzod94/16/1960Tobacco Afdifickr51/16/1960DTaP,Tdap and Td Vaccines (1 - Tdap)1966Zoster (Shingles) Vaccine (1 of 2)1997Fall Risk Bpntlmmkw86/16/2013RSV ( or age 60+ yrs) (1 - 1-dose 75+ series)2022Influenza Evhnaxz0606/03/2025 Medical Devices Not on file Insurance Care Teams Team MemberRelationshipSpecialtyStart DateEnd Date Pk Niec MD PCP - GeneralFamily Medicine02/01/18
--- OUTSIDE RECORDS SUMMARY | 2025-09-17 07:39 | XMS_ITS | Clinical Summary ---
Author Organization [facility] Address [address] [place] [address] Care Team Providers Care Executive Chef Name Role Phone Pk Nice MD Primary Care Provider [phone] Allergies Active AllergyReactionsCriticalityNoted SlenZqmpzlahAmmgvfzhqbzKfpgxdn64/27/2024 Medications MedicationSigDispense QuantityRefillsLast FilledStart DateEnd DateStatus Lancets 28G misc Active potassium chloride CR (Klor-Con M20) 20 MEQ ER tablet Take 20 mEq by mouth in the morning and 20 mEq before bedtime. Do not crush or chew..Active cholecalciferol (Vitamin D-3) 25 MCG (1000 UT) tablet Take 1,000 Units by mouth in the morning.Active Blood Glucose Monitoring Suppl ([employer] True Metrix Glucose Meter) w/Device kit Indications:Type 2 diabetes mellitus with hyperglycemia, without long-term current use of insulin ([facility])1 each Daily 1 kit 12/02/2023ctive glucose blood ([employer] True Metrix Glucose Strips) test strip Indications:Type 2 diabetes mellitus with hyperglycemia, without long-term current use of insulin ([facility])1 each by Other route Daily 50 each 11012/02/2023ctive triamcinolone (Kenalog) 0.5 % cream Indications:DermatitisAPPLY TO THE AFFECTED AREA(S) topically THREE TIMES DAILY 60 g ctive potassium chloride CR (K-Tab) 20 MEQ ER tablet Indications:Venous insufficiency (chronic) (peripheral)TAKE 1 TABLET BY MOUTH TWICE DAILY 180 tablet ctive levothyroxine (Synthroid, Levoxyl) 100 MCG tablet Indications:Primary hypothyroidismTAKE 1 TABLET BY MOUTH IN THE MORNING 90 tablet ctive amLODIPine (Norvasc) 10 MG tablet Indications:Essential (primary) hypertensionTAKE 1 TABLET BY MOUTH DAILY 90 tablet ctive traZODone (Desyrel) 100 MG tablet Indications:Primary insomniaTake 1 tablet (100 mg) by mouth at bedtime 30 tablet tive atorvastatin (Lipitor) 20 MG tablet Indications:Type 2 diabetes mellitus with hyperglycemia, without long-term current use of insulin (HCC)Take 1 tablet (20 mg) by mouth at bedtime 90 tablet tive pioglitazone (Actos) 45 MG tablet Indications:Type 2 diabetes mellitus with hyperglycemia, without long-term current use of insulin (HCC)Take 1 tablet (45 mg) by mouth Daily 90 tablet tive losartan (Cozaar) 100 MG tablet Indications:Benign essential hypertensionTake 1 tablet (100 mg) by mouth Daily 90 tablet tive glipiZIDE (Glucotrol) 5 MG tablet Indications:Type 2 diabetes mellitus with hyperglycemia, without long-term current use of insulin (HCC)Take 1 tablet (5 mg) by mouth Daily 90 tablet tive montelukast (Singulair) 10 MG tablet Indications:Allergic rhinitis due to pollenTake 1 tablet (10 mg) by mouth at bedtime 90 tablet tive furosemide (Lasix) 40 MG tablet Indications:Venous insufficiency (chronic) (peripheral)Take 1 tablet (40 mg) by mouth in the morning and 1 tablet (40 mg) before bedtime. 60 tablet tive omeprazole (PriLOSEC) [address] capsule Indications:Gastroesophageal reflux disease without esophagitisTake 1 capsule (20 mg) by mouth Daily 90 capsule 5Active Active Problems ProblemNoted DateDiagnosed DateMedicare annual wellness visit, subsequent 09/12/2024 Assessment & Plan (09/12/2024 10:38 AM EST): Reviewed labs. Discussed proper diet and regular aerobic exercise. Need aerobic exercise 5-6 days aweek for 30 minutes at a time. Smaller portions and limit total calories. Tetanus every 10 years. Advised not to smoke. Screening PSA (prostate specific antigen)05/17/2024Venous insufficiency 11/30/2023 Assessment & Plan (03/13/2025 11:11 AM EDT): Edema controlled and elevate legs PRN. Continue lasix. Assessment & Plan (05/28/2024 12:13 PM EDT): Edema worse and need to limit sodium. Elevate legs PRN. Continue lasix. Assessment & Plan (11/30/2023 11:57 AM EST): Edema stable and continue lasix. Elevate legs PRN. Vitamin D yrvwzjvgit56/28/2024Gastro-esophageal hagkli1511/22/2023 Assessment & Plan (03/13/2025 11:10 AM EDT): Symptoms controlled with omeprazole and continue. Assessment & Plan (05/28/2024 12:12 PM EDT): Symptoms controlled with omeprazole and continue. Assessment & Plan (11/30/2023 11:56 AM EST): Symptoms controlled with omeprazole and continue. Benign essential amqvyamxiqwi17/20/2024 Assessment & Plan (03/13/2025 11:10 AM EDT): BP controlled and monitor PRN. Assessment & Plan (05/28/2024 12:12 PM EDT): BP controlled and monitor PRN. Assessment & Plan (11/30/2023 11:55 AM EST): BP controlled and monitor PRN. Bilateral primary osteoarthritis of hip11/22/2023ilateral primary osteoarthritis of knee11/22/2023hronic fjrpywavwgyw01/20/2024Dyslipidemia 11/22/2023Encounter for long-term current use of yzhkdknxju94/20/2024dult rjtlqqajrokagw94/20/2024Primary vsbvmiuu22/20/2024Class 3 severe obesity due to excess calories with serious comorbidity and body mass index (BMI) of45.0 to 49.9 in adult11/22/2023 Assessment & Plan (03/13/2025 11:11 AM EDT): Weight loss indicated. Assessment & Plan (05/28/2024 12:16 PM EDT): Weight loss indicated. STIVEN (obstructive sleep apnea)11/22/2023 Assessment & Plan (03/13/2025 11:10 AM EDT): [...] PAP therapy. Stage 3b chronic kidney disease (CKD)11/22/2023Type 2 diabetes mellitus with bealsumanqgxjy76/20/2024 Assessment & Plan (03/13/2025 11:11 AM EDT): Continued pain but tolerable and declines medication. Assessment & Plan (05/28/2024 12:13 PM EDT): Continued pain but tolerable and declines medication. Assessment & Plan (11/30/2023 11:57 AM EST): Continued pain but tolerable and declines medication. Will complete form for diabetic shoes. Type 2 diabetes mellitus with hyperglycemia, without long-term current use of fctyvff0511/22/2023 Assessment & Plan (03/13/2025 11:11 AM EDT): [...] if elevated will increase glipizide. Resolved Problems ProblemNoted DateDiagnosed DateResolved EysaDuesltmhvj73 Assessment & Plan (11/30/2023 11:57 AM EST): Recurrent rash and start steroid cream. Family History Medical HistoryRelationNameCommentsDiabetesFatherHeart diseaseFatherHypertension FatherHypothyroidismMotherOsteoporosisMotherVaricose veinsSisterRelationName StatusCommentsFatherDeceasedMotherDeceasedSister Social History Tobacco UseTypesPacks/DayYears UsedDateSmoking Tobacco: FormerCigarettes0.352944 - 1967Smokeless Tobacco: Never Tobacco Cessation:Counseling Given: Not Answered PHQ-2AnswerDate RecordedPatient Health Questionnaire-2 Pujvt80811/13/2023Sex and Gender InformationValueDate RecordedSex Assigned at BirthNot on fileLegal Sex Male12/15/2022 7:21 PM EDTGender IdentityNot on fileSexual OrientationNot on file Last Filed Vital Signs Vital SignReadingTime TakenCommentsBlood Ywinrtmt797/80003/13/2025 10:47 AM EDT Dxczq758203/13/2025 10:47 AM XLZXatnwrublqw91.3 ??C (97.3 ??F)03/13/2025 10:47 AM EDTRespiratory Ubsa367003/13/2025 10:47 AM EDTOxygen Jgesehhcfc59%03/13/2025 10:47 AM EDTInhaled Oxygen Concentration--Favrkz540 kg (321 lb)03/13/2025 10:47 AM EDT Zvttsp890.1 cm (5' 10.5 )03/13/2025 10:47 AM EDTBody Mass Index45.41003/13/2025 10:47 AM EDT Plan of Treatment Not on file Insurance Care Teams Team MemberRelationshipSpecialtyStart DateEnd Date Pk Nice MD [facility]
--- OUTSIDE RECORDS SUMMARY | 2025-09-17 07:39 | XMS_ITS | Clinical Summary ---
Author Organization [facility] Address [address] [place] [address] Care Team Providers Care Gear Hobber Operator Name Role Phone Unavailable Primary Care Provider Unavailabl e Social History Tobacco UseTypesPacks/DayYears UsedDateSmoking Tobacco: Never AssessedSex and Gender InformationValueDate RecordedSex Assigned at BirthNot on fileLegal Sex Male03/31/2022 9:31 PM EDTGender IdentityNot on fileSexual OrientationNot on file Plan of Treatment Not on file
== END 2025-09-17 07:37 | disposition home or self-care (01) ==
LOC: LAB 07:36
PROVIDERS: PCP Family Medicine; Visit Provider Family Medicine
DX: E11.65 Type 2 diabetes mellitus with hyperglycemia (principal)
CPT/HCPCS: 36415; 83036